=== PATIENT | male | born 1980 | race Caucasian/White ===

== ENCOUNTER 2017-01-15 13:15 | Inpatient (IN) | payer OTHER ==
[~2017-01-15] VITALS: Ht 180.3 cm; Wt 110.0 kg
--- NOTE | 2017-01-15 13:53 | NUR ---
PT IN RM WITH CAREGIVERS
--- NOTE | 2017-01-15 13:54 | NUR ---
DR. DAY AT BEDSIDE FOR MSE.
--- NOTE | 2017-01-15 14:03 | NUR ---
PT BROUGHT TO ED BY CAREGIVERS FROM [facility] C/O POSSIBLE LITHIUM TOXICITY. PER CAREGIVER PT WOKE UP THIS MORNING AT APPROX 0730 WITH INCREASED AGITATION AND CONFUSION, ALSO 3 EPISODES OF LOOSE STOOL. PER CAREGIVER PT WAS STARTED ON LITHIUM 12/18/16 AND DOSE HAS NOT CHANGED SINCE THEN, LEVEL WERE DRAWN 12/28/16 AND WERE NORMAL PER CAREGIVER. CAREGIVER REPORTS PT HAS BEEN AT HOME FOR 4 MONTHS, HX OF MR, NORMAL BASELINE FOR PT HE IS ABLE TO MAKE NEEDS KNOWN AND COOPERATIVE. PT ARRIVED TO ED CONFUSED, NOT FOLLOWING COMMANDS, COMBATIVE, RESTLESS, EPISODES OF AGITATION AND COMBATIVE TOWARDS STAFF PER CAREGIVER, RESPS EVEN AND UNLABORED, SKIN INACT, WARM/DRY TO TOUCH, ABDOMEN ROUND/SOFT. PT GOWNED, PLACED ON SWING TENDER.
--- NOTE | 2017-01-15 14:15 | NUR ---
PT PLACED IN 4PT RESTRAINTS FOR PT SAFETY D/T ATTEMPTING TO AMBULATE WITH UNSTEADY GAIT AND COMBATIVENESS, REMOVING ALL MONITORS. RESTRAINT FORMS SIGNED AND PLACED IN PT CHART. CAREGIVERS AT BEDSIDE.
--- NOTE | 2017-01-15 15:28 | NUR ---
PER CAREGIVER PT PUNCHED 2 CAREGIVERS FROM [facility] WHILE WAITING IN LOBBY.
[2017-01-15 15:33] LABS: BASOPHIL % 0.4 % (0-2); PLATELET COUNT 291 x10^3mcL (130-400); RED CELL DISTRIBUTION WIDTH 13.4 % (11.5-14.5)
--- NOTE | 2017-01-15 15:34 | NUR ---
DR. DAY AT BEDSIDE DISCUSSING PLAN OF CARE WITH CAREGIVERS.
[2017-01-15 15:45] LABS: CALCIUM 9.1 mg/dL (8.5-10.1); CARBON DIOXIDE 29.8 mmol/L (21-32); CHLORIDE SERUM 104 mmol/L (98-107); CREATININE SERUM 1.3 mg/dL (0.7-1.3); GFR1 > 60 mL/min; GLUCOSE SERUM 123 mg/dL (74-106); POTASSIUM SERUM 4.2 mmol/L (3.5-5.1); SODIUM SERUM 142 mmol/L (136-145)
[2017-01-15 15:50] LABS: ALBUMIN 4.4 g/dL (3.4-5.0); ALKALINE PHOSPHATASE 83 U/L (46-116); ALT/SGPT 28 U/L (16-63); AST/SGOT 16 U/L (15-37); BILIRUBIN TOTAL 0.32 mg/dL (0.20-1.00); MAGNESIUM 2.3 mg/dL (1.8-2.4); TOTAL PROTEIN, SERUM 7.8 g/dL (6.4-8.2)
[2017-01-15] MEDS ORDERED: FLUOXETINE HYDR10 M1 PO (16:10)
[2017-01-15] MEDS ORDERED: ABILIFY20 M1 PO (16:10)
[2017-01-15] MEDS ORDERED: HALOPERIDOL5 MG PO ×2 (16:11→16:12)
[2017-01-15] MEDS ORDERED: LITHIUM CARBON300 M1 PO (16:12)
[2017-01-15] MEDS ORDERED: SEROQUEL XR200 M1 PO (16:12)
[2017-01-15] MEDS ORDERED: TEMAZEPAM30 MG PO (16:13)
[2017-01-15] MEDS ORDERED: VALPROIC A250 MG/5 M PO (16:13)
[2017-01-15 16:14] LABS: UA SPECIFIC GRAVITY >=1.030 (1.005-1.035); microscopic required? YES; urine erythrocyte TRACE (NEGATIVE)
[2017-01-15] MEDS ORDERED: TRAZODONE150 M1 PO (16:14)
[2017-01-15] MEDS ORDERED: BENZTROPINE MESY1 MG PO (16:14)
[2017-01-15] MEDS ORDERED: ZONEGRAN100 MG PO (16:15)
[2017-01-15] MEDS ORDERED: ZESTRIL5 MG PO (16:23)
[2017-01-15] MEDS ORDERED: LEVETIRACETAM PO (16:23)
[2017-01-15] MEDS ORDERED: DILANTIN100 MG PO (16:23)
[2017-01-15 16:24] LABS: CHOLESTEROL/HDL RATIO 2.9
[2017-01-15] MEDS ORDERED: ZOCOR10 MG PO (16:24)
[2017-01-15] MEDS ORDERED: DORZOLAMIDE HYD10 M3 OP (16:24)
[2017-01-15] MEDS ORDERED: SEROQUEL200 MG PO (16:24)
[2017-01-15 16:28] LABS: AMPHETAMINE QUAL UR NONE DETECTED (NEG <=1000)
[2017-01-15 16:31] LABS: FREE T4 0.69 ng/dL (0.76-1.46); FREE THYROXINE INDEX 1.2 ug/dL (1.4-4.5); T4(THYROXINE) 3.8 ug/dL (4.7-13.3)
[2017-01-15 16:32] LABS: T3 TOTAL 0.72 ng/mL
--- NOTE | 2017-01-15 16:41 | NUR ---
PT CONTINUES IN 4 POINT RESTRAINTS FOR SAFETY TO SELF AND AGGRESSIVE BEHAVIOR, HAS EPISODES OF YELLING OUT AND RESTLESSNESS, RESPS EVEN AND UNLABORED, NO DISTRESS NOTED. CAREGIVER AT BEDSIDE.
--- NOTE | 2017-01-15 17:01 | NUR ---
RESIDENT AT BEDSIDE FOR EVAL.
--- NOTE | 2017-01-15 18:05 | NUR ---
PT CONTINUES WITH EPISODES OF AGITATION AND RESTLESSNESS, BECOMES HOT AND DIAPHORETIC FROM MOVEMENT THEN CALMS DOWN, RESPS EVEN AND UNLABORED, CAREGIVER AT BEDSIDE.
--- NOTE | 2017-01-15 18:30 | NUR ---
STACY ORDER UNVERIFIED, RESIDENT PAGED FOR CLARIFICATION ON ORDER.
--- NOTE | 2017-01-15 19:23 | NUR ---
REPORT GIVEN TO BIBIANA HOBBS.
--- NOTE | 2017-01-15 19:46 | NUR ---
SPOKE TO DR. RUSS TO CLARIFY LEVAQUIN ORDER. HE STATES HE WILL CONSULT WITH PREVIOUS RESIDENT AND INFORM ASSOCIATE ENTERTAINMENT EDITOR RN BIBIANA.
--- NOTE | 2017-01-15 20:05 | NUR ---
PT LAYING IN BED, APPEARS AGITATED WHEN APPROACHED BY MYSELF. PT ATTEMPTING TO SPIT AT MYSELF AND CAREGIVER WHICH IS AT BEDSIDE. RESPIRATIONS EVEN AND UNLABORED. BED IN LOW POSITION. IN FULL VIEW OF NURSE'S STATION.
--- NOTE | 2017-01-15 23:57 | NUR ---
SPOKE WITH DR. RUSS AND MADE AWARE OF PT REFUSING PO MEDS.
--- NOTE | 2017-01-16 01:34 | NUR ---
PT AGITATED AND YELLING AT THIS TIME. PT YELLS "I WANT TO GO HOME, LEAVE ME ALONE". REORIENTED PT TO WHY HE IS IN THE HOSPITAL. BED IN LOW POSITION. CALL LIGHT WITHIN REACH. CAREGIVER AT BEDSIDE. IN FULL VIEW OF NURSE'S STATION.
--- NOTE | 2017-01-16 03:20 | NUR ---
PT REFUSED TAKING TYLENOL PO FOR FEVER AT THIS TIME. WILL NOTIFY RESIDENT FOR ORDER.
--- NOTE | 2017-01-16 03:25 | NUR ---
NOTIFIED RESIDENT OF PT FEVER, WILL MEDICATE PER ORDER OF TORADOL 30MG IVP.
--- NOTE | 2017-01-16 04:09 | NUR ---
PT SLEEPING IN BED, IN POSITION OF COMFORT. PT EASILY AROUSABLE TO VERBAL STIMULI. RESPIRATIONS EVEN AND UNLABORED. NO ACUTE DISTRESS NOTED. BED IN LOW POSITION. SITTER AT BEDSIDE. CALL LIGHT WITHIN REACH.
--- NOTE | 2017-01-16 07:00 | NUR ---
PT LAYING IN BED, MOVING AROUND CONSTANTLY. RESPIRATIONS EVEN AND UNLABORED. NO ACUTE DISTRESS NOTED. BED IN LOW POSITION. CALL LIGHT WITHIN REACH.
--- NOTE | 2017-01-16 07:40 | NUR ---
PT STILL TRYING TO GET UP OUT OF BED, FOUR POINT RETRAINTS REMAIN ON THE PT WITH ENOUGH ROOM TO FIT TWO OF MY FINGERS BETWEEN THE SOFT RESTRAINT AND THE PTS SKIN. CIRCULATION WNL. ALL FOUR RESTRAINTS REMOVED ONE AT A TIME TO PROVIDE ROM AND THEN REAPPLIED. PTS CARGIVER REMAINS AT BEDSIDE WITH THE PT.
--- NOTE | 2017-01-16 07:56 | NUR ---
REPORTG CALLED TO FABY PAYNE TO ASSUME CARE FOR THIS PT POST TRANSFER FROM ED TO TELE UNIT
--- NOTE | 2017-01-16 08:20 | NUR ---
PT CLEANED AND NEW LINENS PLACED PRIOR TO PT BEING TRANSPORTED UPSTAIRS.
--- NOTE | 2017-01-16 08:26 | NUR ---
PT LEAVING TO GO UPSTAIRS WITH PRIMARY NURSE SHONA AND EMT ALLEY, VIA REED [id number] UP FOR SAFETY. PT AWAKE LOOKING AROUND.
--- NOTE | 2017-01-16 09:50 | NUR ---
RECEIVED PT FROM ER STAFF. PT TRANSPORTED VIA GURNEY. VS STABLE. UNABLE TO ASSESS ORIENTATION, ADMISSION HISTORY OBTAINED FROM BOARDING CARE STAFF. S1S2 ON AUSCULTATION, TELE 13 SR ON MONITOR. ACTIVE BOWEL SOUNDS. MCGEE CATHETER IN PLACE. IV TO RAC PATENT. BED IN LOWEST POSITION, CALL LIGHT WITHIN REACH. BOARDING CARE STAFF AND SITTER AT BEDSIDE.
--- NOTE | 2017-01-16 11:00 | NUR ---
PT IN BED, ON 2 POINT RESTRAINTS BEING MONITORED [id number], PT APPEARS CALM AT MOMENT. SITTER AT BEDSIDE.
[2017-01-16 14:09] VITALS: BP 135/70
--- NOTE | 2017-01-16 14:10 | NUR ---
PT BECOMING AGGITATED, RESTLESSNESS PRESENT. WILL MEDICATE PER EMAR AND DOCTOR'S ORDER. PT TOLERATED WELL. WILL CONTINUE TO MONITOR.
--- NOTE | 2017-01-16 15:55 | NUR ---
PT STILL RESTLESS, AGRESSION EVIDENT. PT ON 2 POINT RESTRAINTS TO BUE, MEDICATED PER EMAR. WILL CONTINUE TO MONITOR CLOSELY.
[2017-01-16 17:12] LABS: BASOPHIL % 0.1 % (0-2); PLATELET COUNT 263 x10^3mcL (130-400); RED CELL DISTRIBUTION WIDTH 13.6 % (11.5-14.5)
[2017-01-16 17:25] LABS: CALCIUM 8.6 mg/dL (8.5-10.1); CARBON DIOXIDE 25.9 mmol/L (21-32); CREATININE SERUM 1.6 mg/dL (0.7-1.3); POTASSIUM SERUM 3.6 mmol/L (3.5-5.1)
[2017-01-16 17:50] VITALS: BP 134/72
--- NOTE | 2017-01-16 18:10 | NUR ---
PT IN BED SUPINE, CALM AND SLEEPING AT MOMENT. REMAINS ON 2 POINT SOF RESTRAINTS TO BUE, PULSES PRESENT +2 BILATERALLY. WILL CONTINUE TO MONITOR CLOSELY.
[2017-01-16 18:24] VITALS: BP 131/79
[2017-01-16 19:32] LABS: MAGNESIUM 1.9 mg/dL (1.8-2.4); PHOSPHOROUS 3.9 mg/dL (2.5-4.9)
[2017-01-16 19:58] VITALS: BP 133/72
--- NOTE | 2017-01-16 20:00 | NUR ---
sedated. on soft bilateral wrist restraints for pt's safety. pt attempts to pull on iv line and friedman cath. breathing even and unlabored on 2lpm of o2 via nc. on cooling measures. new iv inserted to right hand, 22g, by nurse tiffanyu. iv to right forearm could not be flushed.
--- NOTE | 2017-01-16 20:27 | NUR ---
pt's caregiver don prieto here. aware pt is on soft bilateral wrist restraints for his safety. he stated he will bring pt's radio tomorrow as it helps calm pt down.
[2017-01-16 21:00] VITALS: BP 127/71
--- NOTE | 2017-01-16 21:49 | NUR ---
UNABLE TO ADMINISTER DUE PO MEDICATIONS, PT STILL SEDATED. DR. IVORY INFORMED.
--- NOTE | 2017-01-16 23:41 | NUR ---
PT WOKE UP, BECOMING AGITATED. WAS ABLE TO ADMINISTER PO MEDS NOT ADMINISTERED EARLIER. STILL ON SOFT BILATERAL WRIST RESTRAINTS. ATTEMPTS TO PULL OUT IV AND MCGEE CATH. ATTEMPTS TO GET OUT OF BED WITHOUT CALLING. DANGER TO SELF
--- NOTE | 2017-01-17 00:30 | NUR ---
PT REMOVED STATLOCK MCGEE. PUT IN PLACE NEW STATLOCK MCGEE. TURNED AND REPOSITIONED. HOB KEPT ELEVATED 30 DEG. ON SOFT BILATERAL WRIST RESTRAINTS. DANGER TO SELF. CALL LIGHT WITHIN EASY REACH. SIDE RAILS PADDED. HX OF EPILEPSY.
--- NOTE | 2017-01-17 01:24 | NUR ---
EYES CLOSED, BREATHING EVEN AND UNLABORED ON 2LPM OF O2 VIA NC. HOB KEPT ELEVATED 30 DEG. UPPER SIDE RAILS KEPT RAISED. CALL LIGHT WITHIN EASY REACH. SITTER IN ROOM. STILL ON SOFT BILATERAL WRIST RESTRAINTS. ATTEMPTS TO PULL ON IV LINE AND MCGEE CATH. IVF OF NS AT 50ML/HR. SINUS RHYTHM ON TELE, HR 100/MIN.
--- NOTE | 2017-01-17 06:26 | NUR ---
BED BATH ADMINISTERED. ORAL CARE DONE. MCGEE CATH CLEANED PER PROTOCOL. NOTED BLANCHABLE REDNESS TO BUTTOCKS. Z GUARD APPLIED. BREATHING EVEN AND UNLABORED ON 2LPM OF O2 VIA NC. HOB KEPT ELEVATED 30 DEG. FEET OFFLOADED FROM BED WITH PILLOWS. STILL DANGER TO SELF. ATTEMPTS TO PULL ON IV LINE AND MCGEE CATH. OPENS EYES SPONTANEOUSLY. AT TIMES, AGITATED. SITTER IN ROOM
[2017-01-17 06:36] VITALS: BP 140/72
[2017-01-17 06:55] LABS: BASOPHIL % 0.1 % (0-2); PLATELET COUNT 257 x10^3mcL (130-400); RED CELL DISTRIBUTION WIDTH 13.6 % (11.5-14.5)
--- NOTE | 2017-01-17 06:57 | NUR ---
EYES CLOSED, BREATHING EVEN AND UNLABORED. HOB KEPT ELEVATED 30 DEG.
[2017-01-17 07:04] LABS: CALCIUM 8.6 mg/dL (8.5-10.1); CARBON DIOXIDE 27.4 mmol/L (21-32); CHLORIDE SERUM 103 mmol/L (98-107); CREATININE SERUM 1.2 mg/dL (0.7-1.3); GFR1 > 60 mL/min; GLUCOSE SERUM 116 mg/dL (74-106); POTASSIUM SERUM 3.6 mmol/L (3.5-5.1); SODIUM SERUM 140 mmol/L (136-145)
--- NOTE | 2017-01-17 07:40 | NUR ---
REASSESSMENT DONE. PT SLEEPING DURING ASSESSMENT. NO DISTRESS NOTED ON TELE 13 WITH SR ON MONITOR. PT ON 2 POINT SOFT RESTRAINTS AT MOMENT. PALPABLE PULSES TO BUE +2. SKIN WARM AND DRY TO BUE. PT HAS MCGEE CATHETER IN PLACE WITH DARK RENITA URINE IN COLLECTING BAG. IV INFUSING WELL TO RIGHT HAND NS 50ML/HR. BED IN LOWEST POSITION, CALL LIGHT WITHIN REACH.
[2017-01-17 10:10] VITALS: BP 131/80
--- NOTE | 2017-01-17 11:25 | NUR ---
PT BECOMING AGITATED, PULLING AND KICKING. RESTLESS. MEDICATED PER EMAR. SITTER AT BEDSIDE. WILL CONTINUE TO MONITOR CLOSELY.
--- NOTE | 2017-01-17 13:25 | NUR ---
PERFORMED MCGEE CATHETER CARE. PULSES +2 TO BILATERAL UPPER EXTREMITIES. SKIN WARM, AND DRY. SITTER AT BEDSIDE.
--- NOTE | 2017-01-17 17:00 | NUR ---
IV RESTARTED TO LFA 22 GAUGE BY SABRINA HARPER. PT AGITATED AT TIME OF INSERTION.
--- NOTE | 2017-01-17 17:22 | NUR ---
PT BECOMING MORE AGITATED, AND COMBATIVE. RESTLESS. MEDICATED PER EMAR. PT TOLERATED WELL. SITTER AT BEDSIDE. WILL CONTINUE TO MONITOR CLOSELY.
--- NOTE | 2017-01-17 19:52 | NUR ---
PT AWAKE, YELLING, AND TRYING TO PULL LINES. GAVE PT ATIVAN IVP. PT TOLERATED IT WELL. NO C/O PAIN THUS FAR. RESPONDS WITH VERBAL STIMULI. BREATH SOUNDS CLEAR. BREATHING EVEN AND UNLABORED ON 2L NC, SPO2 97%. BUSTER SOFT WRIST RESTRAINS NOTED. PT TOLERATING IT WELL. BOWEL SOUNDS ACTIVE. NO C/O N/V AND ABD PAIN. IV INTACT ON THE RIGHT HAND INFUSING WITH NS AT 50 ML/HR. MCGEE CATH IN PLACE DRAINING TO GRAVITY WITH DARK RENITA URINE. REDNESS NOTED ON BUE AND SCRATCHES BUTTOCKS RENAY. MADE PT COMFORTABLE. PLACED CALL LIGHT WITH IN REACH. WILL CONTINUE TO MONITOR.
[2017-01-17 21:25] VITALS: BP 120/70
--- NOTE | 2017-01-18 00:32 | NUR ---
PT RESTING WITH EYES CLOSED. NO DISTRESS AND DISCOMFORT NOTED. MADE PT COMFORTABLE. WILL CONTINUE TO MONITOR.
--- NOTE | 2017-01-18 05:39 | NUR ---
PT RESTING WITH EYES CLOSED. AROUSABLE WITH VERBAL STIMULI. IV INTACT AND INFUSING ORDERED. MCGEE CATH IN PLACE. MADE PT COMFORTABLE. WILL ENDORSE TO THE AM NURSE ACCORDINGLY.
[2017-01-18 06:06] LABS: CALCIUM 8.5 mg/dL (8.5-10.1); CARBON DIOXIDE 28.7 mmol/L (21-32); CHLORIDE SERUM 102 mmol/L (98-107); GFR1 > 60 mL/min; GLUCOSE SERUM 108 mg/dL (74-106); POTASSIUM SERUM 3.9 mmol/L (3.5-5.1); SODIUM SERUM 139 mmol/L (136-145)
[2017-01-18 06:16] LABS: BASOPHIL % 0.2 % (0-2); PLATELET COUNT 256 x10^3mcL (130-400); RED CELL DISTRIBUTION WIDTH 13.4 % (11.5-14.5)
[2017-01-18 06:43] VITALS: BP 121/74
--- NOTE | 2017-01-18 07:30 | NUR ---
PATIENT IS IN BED WITH BILAT SOFT WRIST RESTRAINTS IN PLACE. PATIENT VERY AGITATED YELLING AND CURSING OFF AND ON. CLIMBING OUT OF BED OVER SIDERAILS. ALERT AND ORIENTED X 1. IVF INFUSING WELL, SITE PATENT. TELE 13 NSR. LUNGS CLEAR ON O2 AT 2L VIA N/C. PT IS OBESE, BOWEL SOUNDS ACTIVE. MCGEE CATH DRAINING VERY DARK RENITA URINE. NO EDEMA NOTED. SCATTERED BRUISING AND REDNESS NOTED ON EXTREMITES AND BILAT BUTTOCKS . SKIN INTACT. WILL CONTINUE TO MONITOR.
--- NOTE | 2017-01-18 08:20 | NUR ---
DR DEL RIO AND MEDICAL TEAM INTO SEE PATIENT AND DISCUSS PLAN OF CARE.
[2017-01-18 08:31] VITALS: BP 137/78
[2017-01-18 09:21] VITALS: BP 172/119
--- NOTE | 2017-01-18 09:26 | NUR ---
PT IS AGITATED AND IS PUSHING STAFF WHILE SCREAMING. PT IS A HARM TO STAFF. WILL MEDICATE PER EMAR. WILL CONTIN TO MONITOR.
--- NOTE | 2017-01-18 09:30 | NUR ---
PT IS AGITATED AND IS SCREAMING AND YELLING. PT IS TRYING TO BITE AND KICK STAFF. STAFF TRY TO CALM PT DOWN BUT PT IS NONCOMPLICANCE. WILL MEDICATE PER EMAR. WILL CONTINUE TO MONITOR.
--- NOTE | 2017-01-18 10:47 | NUR ---
PATIENT CURSING YELLING VERY AGITATED. MEDICATED WITH HALDOL IV BY MIN RN WITH GOOD EFFECT. PATIENT APPEARS TO BE CALM AND RESTING. WILL CONTINUE TO MONITOR.
[2017-01-18 13:48] VITALS: BP 133/70
--- NOTE | 2017-01-18 15:57 | NUR ---
PATIENT REMAINS IN BED WITH BILAT SOFT WRIST RESTRAINTS IN PLACE. BECOMES AGITATED AT TIMES. VISITOR AT BEDSIDE AT THIS TIME. IVF INFUSING WELL. NO ACUTE DISTRESS NOTED. WILL CONTINUE TO MONITOR.
--- NOTE | 2017-01-18 16:06 | NUR ---
MCGEE CATH CARE PROVIDED.
[2017-01-18 17:26] VITALS: BP 125/71
--- NOTE | 2017-01-18 18:20 | NUR ---
PATIENT REMAINS IN BED WITH BILAT SOFT WRIST RESTRAINTS IN PLACE. IVF INFUSING WELL. PATIENT CONTINUES TO HAVE OUTBURSTS OF AGITATION AND CURSING. ATTEMPTS TO GET OOB. MCGEE CATH DRAINING DARK RENITA URINE. WILL CONTINUE TO MONITOR.
--- NOTE | 2017-01-18 19:05 | NUR ---
I HAVE REVIEWED THE DATA COLLECTION BY LUCIO (NAME): ZULMA SHANNON ENTERED ON (DATE/TIME): 01/18/17 0930,0820, 1047, 1557, 1606 I CONCUR WITH THE DATA AND ANY EXCEPTIONS OR COMMENTS ARE LISTED BELOW:
--- NOTE | 2017-01-18 21:01 | NUR ---
PT CURRENTLY RESTING IN BED, NO ACUTE DISTRESS. A/O X1, DEVELOPMENTALLY DELAYED. PT YELLING AND AGITATED. TELE #13 SHOWING SINUS RHYTHM. PULSES PALPABLE IN ALL EXTREMITIES, NO EDEMA NOTED. LUNG SOUNDS CTA BILATERALLY. BOWEL SOUNDS ACTIVE, LAST BM 01/18/17, WATERY STOOLS. MCGEE CATHETER IN PLACE, DARK RENITA URINE NOTED. BILATERAL SOFT WRIST RESTRAINTS IN PLACE DUE TO PT AGRESSION. SKIN AROUND RESTRAINTS WNL. REDNESS TO BUE AND BUTTOCKS NOTED. IV PATENT AND INTACT. BED IN LOWEST POSITION, SIDE RAILS UP X4, SCDS IN PLACE, CALL LIGHT WITHIN REACH. WILL CONTINUE TO MONITOR.
[2017-01-18 22:08] VITALS: BP 132/69
--- NOTE | 2017-01-19 02:00 | NUR ---
PT CURRENTLY RESTING IN BED, NO ACUTE DISTRESS. WILL CONTINUE TO MONITOR.
--- NOTE | 2017-01-19 06:00 | NUR ---
PT SLEPT PERIODICALLY THROUGHOUT NIGHT, NO ACUTE DISTRESS. ALL NEEDS MET AND ATTENDED TO. NO SIGNIFICANT CHANGES. IV PATENT AND INTACT. BED IN LOWEST POSITION, SIDE RAILS UP X4, SCDS IN PLACE, CALL LIGHT WITHIN REACH. WILL ENDORSE CARE TO ONCOMING NURSE.
[2017-01-19 06:13] LABS: BASOPHIL % 0.5 % (0-2); PLATELET COUNT 279 x10^3mcL (130-400); RED CELL DISTRIBUTION WIDTH 13.6 % (11.5-14.5)
[2017-01-19 06:16] LABS: CALCIUM 8.8 mg/dL (8.5-10.1); CHLORIDE SERUM 107 mmol/L (98-107); CREATININE SERUM 0.9 mg/dL (0.7-1.3); GFR1 > 60 mL/min; GLUCOSE SERUM 103 mg/dL (74-106); POTASSIUM SERUM 4.6 mmol/L (3.5-5.1); SODIUM SERUM 143 mmol/L (136-145)
--- NOTE | 2017-01-19 07:30 | NUR ---
RECEIVED PT RESTING IN BED. AGITATED AND YELLING AT STAFF ON AND OFF. RESP EVEN AND UNLABORED ON 3L NC. NO SOB NOTED. WITH BILAT SOFT WRIST RESTRAINTS. WITH SKIN TEAR R WRIST, DRESSING APPLIED. SEIZURE PRECAUTIONS IN PLACE. IVF INFUSING. MCGEE CATH DRAINING TO GRAVITY. BED IN LOWEST POSITION, CALL LIGHT WITHIN REACH. ROOM NEAR NURSES STATION. WILL CONTINUE TO MONITOR.
[2017-01-19 09:12] VITALS: BP 126/84
[2017-01-19 13:30] VITALS: BP 118/75
--- NOTE | 2017-01-19 14:52 | NUR ---
PT VERY AGITATED, YELLING AND ATTEMPTING TO KICK STAFF. GIVEN HALDOL ORDERED. BILAT SOFT WRIST RESTRAINTS IN PLACE. SEIZURE PADS IN PLACE. WILL CONTINUE TO MONITOR.
[2017-01-19 17:31] VITALS: BP 114/69
--- NOTE | 2017-01-19 19:02 | NUR ---
PT RESTING COMFORTABLY IN BED. NO ACUTE DISTRESS AT THIS TIME. YELLING AT TIMES. SEIZURE PRECAUTIONS IN PLACE. BILAT SOFT WRIST RESTRAINTS. IVF INFUSING. BED IN LOWEST POSITION, CALL LIGHT WITHIN REACH. WILL ENDORSE TO INCOMING SHIFT.
--- NOTE | 2017-01-19 20:36 | NUR ---
PT CURRENTLY IN BED, AGITATED AND AGGRESSIVE. NO ACUTE DISTRESS. A/O X1, DEVELOPMENTALLY DELAYED. TELE #13 SHOWING SINUS RHYTHM. PULSES PALPABLE IN ALL EXTREMITIES, NO EDEMA NOTED. LUNG SOUNDS CTA BILATERALLY. BOWEL SOUNDS ACTIVE, LAST BM 01/19/17. MCGEE CATHETER IN PLACE, RENITA URINE NOTED. BILATERAL SOFT WRIST RESTRAINTS IN PLACE. BLANCHABLE REDNESS TO BUE AND BUTTOCKS NOTED. RIGHT WRIST SKIN TEAR NOTED, DRESSING CDI. IV PATENT AND INTACT. BED IN LOWEST POSITION, SIDE RAILS UP X4, SCDS IN PLACE, CALL LIGHT WITHIN REACH. WILL CONTIUE TO MONITOR.
--- NOTE | 2017-01-19 23:03 | NUR ---
MCGEE CATHETER REMOVED, NO ACUTE DISTRESS. WILL CONTINUE TO MONITOR.
--- NOTE | 2017-01-20 01:15 | NUR ---
NEW IV STARTED IN RIGHT WRIST. IV FLUSHING WELL. WILL CONTINUE TO MONITOR.
--- NOTE | 2017-01-20 01:30 | NUR ---
PT CURRENTLY LYING IN BED, FREQUENT EPISODES OF AGITATION AND AGGRESSION STILL APPARENT. WILL CONTINUE TO MONITOR.
--- NOTE | 2017-01-20 06:08 | NUR ---
PT AGGRESSIVE AND AGITATED PERIODICALLY THROUGHOUT NIGHT. NO ACUTE DISTRESS. ALL NEEDS MET AND ATTENDED TO. NO SIGNIFICANT CHANGES. IV PATENT AND INTACT. BED IN LOWEST POSITION, SIDE RAILS UP X4, SCDS IN PLACE, CALL LIGHT WITHIN REACH. WILL ENDORSE CARE TO ONCOMING NURSE.
[2017-01-20 06:15] LABS: BASOPHIL % 0.4 % (0-2); PLATELET COUNT 334 x10^3mcL (130-400); RED CELL DISTRIBUTION WIDTH 13.4 % (11.5-14.5)
[2017-01-20 06:41] LABS: CALCIUM 9.1 mg/dL (8.5-10.1); CARBON DIOXIDE 26.4 mmol/L (21-32); CHLORIDE SERUM 103 mmol/L (98-107); CREATININE SERUM 0.9 mg/dL (0.7-1.3); GFR1 > 60 mL/min; GLUCOSE SERUM 119 mg/dL (74-106); POTASSIUM SERUM 3.8 mmol/L (3.5-5.1); SODIUM SERUM 142 mmol/L (136-145)
[2017-01-20 07:30] VITALS: BP 153/93
--- NOTE | 2017-01-20 08:00 | NUR ---
PT'S DROWSY BUT ON STATE OF FIGHTING HIS DROWSINESS AT THIS TIME,UP AND DOWN ON HIS BED,ON BUSTER.SOFT RESTRAINT,NOTED SWELLING AND REDNESS TO BOTH HANDS,SKIN TEAR NOTED ON RIGHT WRIST NOC NURSE AWARE AND REPORTED IT ON ENDORSEMENT. IV HEPLOCK PATENT AND REINFORCED,SITTER AT BEDSIDE.
--- NOTE | 2017-01-20 08:45 | NUR ---
PT'S AGITATED AND AGRESSIVE AT THIS TIME,TRYING TO GET OUT OF BED,HITTING NURSE AT BEDSIDE WHEN TRYING TO CALM HIM DOWN ON HIS BED.BILAT. SOFT REST. ON. TO GIVE PRN MED.
--- NOTE | 2017-01-20 09:00 | NUR ---
PT STILL AGITATED AND AGRESSIVE AND SPITTED OUT ALL HIS CRUSHED MIX W/ APPLE SAUCE MEDICINE,VERY UNCOOPERATIVE. TO INFORM
--- NOTE | 2017-01-20 09:20 | NUR ---
DR FLORES AT STATION MADE AWARE OF PT'S BEHAVIOUR AT THIS TIME,SABRINA BRAGG ALSO AWARE,DR FLORES WRITING ADDITIONAL ORDERS AT THIS TIME,TO FOLLOW UP.
--- NOTE | 2017-01-20 09:30 | NUR ---
ADDITIONAL IVP MEDS GIVEN ORDERED,DOC.ON EMAR,VITAL'S NOTED.
--- NOTE | 2017-01-20 10:45 | NUR ---
PT OUT SLEEPING AT THIS TIME,RESTRAINT OFF AT THIS TIME,SITTER AT BEDSIDE,TELE MONITOR SHOWS SR AT 90'S. TO REASSES.
[2017-01-20 12:49] VITALS: BP 166/93
--- NOTE | 2017-01-20 13:57 | NUR ---
Patient spited out the meds/water from his mouth to nurse's face, still yelling and kicking at times. Dr. Munson made aware of patient's situation.
--- NOTE | 2017-01-20 14:11 | NUR ---
PT ASLEEP AT THIS TIME IN NO ACUTE DISTRESS. BED AT LOWEST POSITION WITH SEIZURE PADS IN PLACE. WILL CONTINUE TO MONITOR.
[2017-01-20 14:42] VITALS: BP 128/72
--- NOTE | 2017-01-20 16:55 | NUR ---
PT AWAKE,STILL DROWSY,TRIED TO GIVE HIS ORAL MED HALDOL AND SEROQUEL AND ABLE TO TAKE IT WITH DR BUTLER AT BEDSIDE REINFORCING TO TAKE HIS ORAL MEDS. TRIED TO GIVE THE REST OF HIS ORAL MEDS FOR THE DAY BUT REFUSING ALREADY TO OPEN HIS MOUTH AND UNCOOPERATIVE AT THIS MOMENT.
[2017-01-20 18:05] VITALS: BP 133/78
--- NOTE | 2017-01-20 19:17 | NUR ---
PT SLEEPING COMFORTABLY AT THIS TIME,IN NO DISTRESS,VITALS' NORMAL,BEDSIDE ENDORSEMENT DONE WITH NOC NURSE MABLE AND ORIENTEE.HEPLOCK INTACT AND PATENT, CIRCULATION CHECKED DONE AND WNL NOTED. BUSTER SOFT RESTRAINT ALSO ENDORSED W/ FLOW SHEET AND MD ORDER.
--- NOTE | 2017-01-20 21:22 | NUR ---
ORIENTED TO NAME ONLY. LUNG SOUNDS CLEAR AND UNLABORED ON ROOM AIR. NO ACUTE DISTRESS NOTED. ON TELE #13, NSR. RADIAL AND PEDAL PULSES PALPABLE. BOWEL SOUNDS ACTIVE X 4 QUADRANTS. DROWSY BUT EASILY AWAKENS TO VERBAL STIMULI. BILAT SOFT WRIST RESTRAINTS FOR SAFETY, SEE FLOWSHEET. DRESSING ON RIGHT WRIST FOR SKIN TEAR CDI. SLIGHT REDNESS TO LEFT WRIST AND BILATERAL ANKLES. BLANCHABLE REDNESS TO SACRUM, APPLIED Z GUARD. NS INFUSING AT 50 ML/HR TO LEFT WRIST, NO REDNESS OR SWELLING. BED IN LOW POSITION, CALL LIGHT WITHIN REACH. SITTER AT BEDSIDE. WILL CONTINUE TO MONITOR.
[2017-01-20 21:55] VITALS: BP 146/89
--- NOTE | 2017-01-20 22:29 | NUR ---
AGITATED, ATIVAN 2MG ADMINISTERED SLOW IVP. HOB KEPT ELEVATED 30 DEG. BREATHING EVEN AND UNLABORED ON ROOM AIR.
--- NOTE | 2017-01-20 22:40 | NUR ---
STILL AGITATED. PAGED DR. ATKINS
--- NOTE | 2017-01-20 23:08 | NUR ---
NEW ORDER WAS RECEIVED, BENADRYL 50MG ADMINISTERED SLOW IVP. HOB KEPT ELEVATED 30 DEG. SITTER IN ROOM.
[2017-01-20 23:48] VITALS: BP 130/87
--- NOTE | 2017-01-20 23:51 | NUR ---
NURSING CO-SIGN THE DOCUMENTATION ENTERED BY THE ORIENTEE HAS BEEN REVIEWED. REVIEWED/CO-SIGNED BY: Cj Man DOCUMENTATION DONE BY: JAIDEN BRAN
--- NOTE | 2017-01-21 00:28 | NUR ---
eyes closed, hob kept elevated 30 deg. on seizure precautions, side rails padded. breathing even and unlabored. rr 18/min. sitter in room.
[2017-01-21 04:53] VITALS: BP 143/88
--- NOTE | 2017-01-21 06:09 | NUR ---
BED BATH ADMINISTERED. PT REFUSED TO WEAR GOWN ALL NIGHT. BREATHING REMAINED EVEN AND UNLABORED ON ROOM AIR. KEPT ON SEIZURE PRECAUTIONS. STILL AGITATED. ON SOFT BILATERAL WRIST RESTRAINTS. ATTEMPTS TO PULL ON IV LINE AND REMOVE TELEBOX. DANGER TO SELF. SITTER IN ROOM.
--- NOTE | 2017-01-21 07:15 | NUR ---
PT DROWSY.SCREAMS AT TIMES.NO SIGNS OF PAIN.LUNGS CLEAR.ON SR ON THE MONITOR.IVF NS GOING AT 50 ML/HR INFUSING WELL.BILAT SOFT WRIST RESTRAINTS FOR PULLING LINES,COMBATIVE AND KICKING,SPITTING AND SCREAMING.SITTER AT BEDSIDE FOR SAFETY.WILL CONTINUE TO MONITOR.
[2017-01-21 07:37] LABS: BASOPHIL % 0.5 % (0-2); PLATELET COUNT 336 x10^3mcL (130-400); RED CELL DISTRIBUTION WIDTH 13.8 % (11.5-14.5)
[2017-01-21 07:44] LABS: CALCIUM 8.7 mg/dL (8.5-10.1); CARBON DIOXIDE 29.6 mmol/L (21-32); CHLORIDE SERUM 104 mmol/L (98-107); CREATININE SERUM 0.9 mg/dL (0.7-1.3); GFR1 > 60 mL/min; GLUCOSE SERUM 114 mg/dL (74-106); MAGNESIUM 1.9 mg/dL (1.8-2.4); PHOSPHOROUS 3.5 mg/dL (2.5-4.9); POTASSIUM SERUM 3.6 mmol/L (3.5-5.1); SODIUM SERUM 142 mmol/L (136-145)
--- NOTE | 2017-01-21 08:10 | NUR ---
AND MEDICINE TEAM AT BEDSIDE.DISCUSS WITH THE MEDICINE TEAM ABOUT THE PLAN OF CARE TO D/C PT TODAY.
[2017-01-21 09:00] VITALS: BP 124/69
--- NOTE | 2017-01-21 09:30 | NUR ---
PT REFUSED HIS MEDS WON'T OPEN HIS MOUTH.TRIED TO TALK TO HIM BUT SPITS ON THE PILL.WILL TRY AGAIN LATER.
--- NOTE | 2017-01-21 12:35 | NUR ---
CAREGIVER AT BEDSIDE. SPOKE TO SHARONA.ALSO SPOKE WITH THE RN.
[2017-01-21 14:50] VITALS: BP 146/91
--- NOTE | 2017-01-21 15:10 | NUR ---
TALKED TO LEV ONE OF THE CAREGIVER.ASKED HOW THE PT WAS IN THE BOARDING CARE.CLAIMS PT WAS MORE COOPERATIVE BEFORE ADMISSION WAS ABLE TO SING AND DANCE UNTIL HE WAS ACTING DIFFERENT AND ALSO SPITTING HIS PILL AT HOME THAT'S WHY THEY HAVE TO TAKE HIM TO THE HOSPITAL.
--- NOTE | 2017-01-21 16:00 | NUR ---
TOOK OFF L RESTRAINTS WITH THE PERMISSION OF TO CHECK IF PT WILL TRY TO CALM DOWN .SITTER AT BEDSIDE FOR SAFETY.PT SLEEPING AT HE MOMENT.
--- NOTE | 2017-01-21 18:30 | NUR ---
PT TRING TO GET OUT OF BED.PUT HIM BACK TO BED AND PUT L WRIST RESTRAINT ON.NO SIGNIFICANT CHANGE NOTED.WILL ENDORSE TO NEXT SHIFT.
--- NOTE | 2017-01-21 19:12 | NUR ---
PT AGITATED TRYING TO GET OUT OF BED.AGITATED.KICKING.HALDOL GIVEN ORDERED BY RESOURCE NURSE AGATHA.
[2017-01-21 19:16] VITALS: BP 155/104
--- NOTE | 2017-01-21 19:43 | NUR ---
PT. NOT FOLLOWING COMMANDS AT THIS TIME. BEHAVIOR AGGRESSIVE. BUE RESTRAINTS ALREADY BURSTED 2 SETS SINCE START OF SHIFT. PT. ALSO STANDING UP IN BED AND STRIKING AT STAFF. ATTEMPTS TO GIVE PRN ATIVAN, BUT IV CATH CAME OUT. 3-4 NURSES ARE OCCUPIED TO RESTRAINT PATIENT AND GET HIM TO SIT BACK DOWN IN BED. BUE RED AND SKIN TEAR NOTED. ABD. SOFT AND ROUND. UNABLE TO ASSESS BREATH SOUNDS AT THIS TIME. PT. NOT STAYING STILL. DR. IVORY PAGED AT THIS TIME.
--- NOTE | 2017-01-21 20:10 | NUR ---
2MG ATIVAN GIVEN IM RT. DELTOID. WILL MONITOR PT.
--- NOTE | 2017-01-21 20:45 | NUR ---
ATIVAN IM INEFFECTIVE. PT. STILL RESTLESS AND REMOVING CLOTHES. TRYING TO STRIKE HIS HANDS AT STAFF AT TIMES. PT. ABLE TO BURST 3RD SET OF SOFT WRIST RESTRAINTS. REQUIRES 2-3 STAFF MEMBERS AT TIMES TO KEEP HIM IN BED. PT. STILL ABLE TO STAND HIMSELF UP IN BED AT TIMES, EXTREMELY STRONG.
--- NOTE | 2017-01-22 00:27 | NUR ---
PT. MORER CALM AT THIS TIME. STARTING TO DOZE OFF TO SLEEP. ABLE TO PLACE PT. BACK ON HEART MONITOR, SR. BED REMAINS LOW LAYING W/ ALARM ON. FREQUENT ROUNDS MADE.
--- NOTE | 2017-01-22 04:48 | NUR ---
PT. BEWTEEN SLEEP AND WAKE. RESTLESS AT TIMES, BUT THEN DOZES BACK OFF TO SLEEP. SITTER REMAINS AT BEDSIDE. NO IV ACCESS AVAILABLE. PT. SR ON MONITOR. WILL CONTINUE TO MONITOR.
[2017-01-22 06:25] LABS: BASOPHIL % 0.5 % (0-2); PLATELET COUNT 329 x10^3mcL (130-400); RED CELL DISTRIBUTION WIDTH 13.4 % (11.5-14.5)
[2017-01-22 06:43] LABS: CALCIUM 8.3 mg/dL (8.5-10.1); CARBON DIOXIDE 22.6 mmol/L (21-32); CHLORIDE SERUM 105 mmol/L (98-107); CREATININE SERUM 0.9 mg/dL (0.7-1.3); GFR1 > 60 mL/min; GLUCOSE SERUM 109 mg/dL (74-106); POTASSIUM SERUM 3.4 mmol/L (3.5-5.1); SODIUM SERUM 141 mmol/L (136-145)
--- NOTE | 2017-01-22 07:00 | NUR ---
BEDSIDE REPORT RCD FROM FABY MATA. PATIENT IS ASLEEP, BUT WAKES EASILY. PATIENT HAS 1:1 SITTER DUE TO AGITATION. BILATERAL SOFT WRIST RESTRAINTS IN PLACE. PER REPORT PATIENT HAS BROKEN OUT OF RESTRAINTS SEVERAL TIMES AND BECOMES VERY AGITATED AT TIMES, IS VERY STRONG AND IS PHYSICALLY AGRESSIVE. ALSO DEVELOPMENTALLY DELAYED. NO IV ACCESS, DOCTORS AWARE PER ADOLFO. TELE NOT ON PROPERLY DUE TO PATIENT AGITATION PER ADOLFO. BED LOW. WILL MONITOR.
--- NOTE | 2017-01-22 08:30 | NUR ---
PATIENT IS GROGGY BUT AROUSABLE TO VERBAL AND PHYSICAL STIMULUS. PATIENT TOOK ALL MEDICATIONS OVER THE COURSE OF ABOUT 15 MINUTES, SOME WITH FOOD, SOME WITHOUT. PATIENT'S SPEECH IS A LITTLE GARBLED BUT SAYS A FEW WORDS AT TIMES. IS RESTLESS AND TRIES TO GET OUT OF BED A FEW TIMES, REDIRECTED AND DISTRACTED BY NURSE AND TRIAL JUDGE, ASHLY. BILATERAL SOFT WRIST RESTRAINTS, RELEASED, ROM, CMS INTACT TO FINGERS, REATTACHED. DRY ABRASIONS NOTED TO BILATERAL WRISTS, PICTURES IN CHART, FROM PREVIOUS PULLING ON RESTRAINTS, MATCH UP WORKER, HEALING. TELE IS ON AND OFF, TELE 13, SR IN 80s, NO APPARENT CHEST PAIN. PATIENT IS DEVELOPMENTALLY DELAYED AND HAS PSYCH HISTORY. HISTORY OF SEIZURES, PRECAUTIONS IN PLACE. HISTORY OF VIOLENT OUTBURSTS PER FABY MATA. NOC NURSE. PALPABLE PERIPHERAL PULSES, NO EDEMA. BECOMES RESTLESS AND KICKS WITH SCDs AND WITH TELE MONITORING. LUNGS CTA BUSTER, REG RESPS, 97% ON ROOM AIR, NO APPARENT SHORTNESS OF BREATH. ABD OBESE, SOFT, NONTENDER, BOWEL SOUNDS ACTIVE. LAST BM YESTERDAY, NO APPARENT DEQUAN/VTG/ALEK. PATIENT ASKED TO GO TO BATHROOM, URINAL PROVIDED AND TRIAL JUDGEJOLLY, ASSISTED WITH USE. DENIES NEED FOR BM AT THIS TIME. NO IV ACCESS, DR. WAY AWARE. WILL MONITOR BEHAVIOR.
[2017-01-22 09:12] VITALS: BP 147/89
--- NOTE | 2017-01-22 10:30 | NUR ---
PATIENT IS ASLEEP, REGULAR RESPS, CALM AT THIS TIME. ALEXA AZEVEDO, AT BEDSIDE. REMOVED LEFT RESTRAINT, WILL MONITOR FOR PATIENT BEHAVIOR. JOLLY TO CALL IF PATIENT BECOMES AGITATED.
--- NOTE | 2017-01-22 11:40 | NUR ---
DR. WAY IN ROOM TO CHECK ON PATIENT. PATIENT ASLEEP, REGULAR RESPS. POSITIONED ON RIGHT SIDE. LEFT WRIST RESTRAINT STILL OFF, HOWEVER, PATIENT DID GET UP ON KNEES A FEW MINUTES PRIOR PER VISITOR IN ROOM, BUT THEN LAID BACK DOWN. PER DR. WAY CONTINUE RESTRAINTS FOR PATIENT AND STAFF SAFETY. WILL MONITOR.
[2017-01-22 14:00] VITALS: BP 136/89
--- NOTE | 2017-01-22 14:14 | NUR ---
MEDICATIONS GIVEN PER MAR. HOWEVER, PATIENT SPIT OUT SEVERAL TIMES. SOME OF THE MEDICATION WAS SWALLOWED, BUT SOME WAS SPIT OUT PARTIALLY DISSOLVED. UNSURE HOW MUCH MEDICATION ACTUALLY RECEIVED BY PATIENT. PATIENT IS RESTLESS AND UNCOOPERATIVE AT THIS TIME. RESTRAINT TO LEFT WRIST REPLACED AT THIS TIME DUE TO PATIENT TRYING TO GET OUT OF BED, UNCOOPERATIVE, YELLING AT STAFF AND NOT FOLLOWING DIRECTIONS. RESTRAINTS FOR CONCERN FOR PATIENT AND STAFF SAFETY. LOAN UNDERWRITER, TESSA, ATTEMPTING TO ASSIST PATIENT WITH LUNCH.
--- NOTE | 2017-01-22 16:32 | NUR ---
STAFF MEMBER FROM [facility] HERE FOR UPDATE. UPDATED ON PATIENT'S MEDICATIONS TODAY AND HIS BEHAVIOR.
--- NOTE | 2017-01-22 17:42 | NUR ---
PATIENT COAXED INTO TAKING MEDICATIONS WITH PUGABEING. IS COOPERATING AT THIS TIME. BILATERAL SOFT WRIST RESTRAINTS REMOVED AT THIS TIME TO SEE HOW HE WOULD DO. PATIENT SEEMED TO BE COOPERATING THEN SUDDENLY TRIED TO GET UP QUICKLY. PATIENT COAXED BACK TO SUPINE POSITION AND RESTRAINTS REPLACED PATIENT IS IMPULSIVE AND NOT FOLLOWING COMMANDS NOW. PATIENT HAS HAD A POOR APPETITE ALL DAY AND HAS EATEN LESS THAN 10% OF HIS MEALS.
[2017-01-22 18:48] VITALS: BP 110/60
--- NOTE | 2017-01-22 19:30 | NUR ---
REPORT GIVEN TO FABY CORRAL. PATIENT AWAKE. BILATERAL SOFT WRIST RESTRAINTS IN PLACE. REPORT SHEET PROVIDED TO SHAYNA. NO IV ACCESS, DR. WAY AWARE. BED LOW, SITTER AT BEDSIDE. CARE ENDORSED.
--- NOTE | 2017-01-22 20:06 | NUR ---
RECIEVED PT AT BEDSIDE. PT IS LETHARGIC AND AAO X1 (TO SELF). PT IS BEING CLOSELY MONITORED. LUNG SOUNDS ARE CTA ON RA. THE PT HAS INCONTINENT SPELLS AND IS ON SOFT RESTRAINTS DUE TO VIOLENT TEDENCIES. THERE IS NO EDEMA NOTED. PULSES PRESENT. BOWEL SOUNDS ACTIVE. BED IS IN LOWEST POSITION. WILL CONTINUE TO MONITOR.
--- NOTE | 2017-01-22 21:30 | NUR ---
I HAVE REVIEWED THE DATA COLLECTION BY LUCIO (NAME): KALPANA GUADARRAMA ENTERED ON (DATE/TIME): 01/22/172129 I CONCUR WITH THE DATA AND ANY EXCEPTIONS OR COMMENTS ARE LISTED BELOW:
--- NOTE | 2017-01-23 01:50 | NUR ---
PT WAS AGITATED AND TRYING TO GET OUT OF BED. PT ALSO CURSED MULTIPLE TIMES. MEDICATED WITH ATIVAN PER EMAR. WILL CONTINUE TO MONITOR.
--- NOTE | 2017-01-23 02:30 | NUR ---
MEDICATION WAS EFFECTIVE. PT IS NOW SLEEPING COMFORTABLE. PT IS BEING CLOSELY MONITORED.
[2017-01-23 06:25] LABS: BASOPHIL % 0.5 % (0-2); PLATELET COUNT 347 x10^3mcL (130-400); RED CELL DISTRIBUTION WIDTH 13.3 % (11.5-14.5)
[2017-01-23 06:43] LABS: CALCIUM 8.1 mg/dL (8.5-10.1); CARBON DIOXIDE 27.7 mmol/L (21-32); CHLORIDE SERUM 104 mmol/L (98-107); CREATININE SERUM 0.8 mg/dL (0.7-1.3); GFR1 > 60 mL/min; GLUCOSE SERUM 103 mg/dL (74-106); POTASSIUM SERUM 3.1 mmol/L (3.5-5.1); SODIUM SERUM 140 mmol/L (136-145)
[2017-01-23 07:09] VITALS: BP 131/78
--- NOTE | 2017-01-23 08:00 | NUR ---
RECIEVED PT. VERY RESTLESS AND AGITATED, PT. KICKING ALL NURSES AT BEDSIDE ON 1:1 SITTER ,BUSTER SOFT WRIST RESTRAINTS ON TO BUSTER. UPPER EXT.HALDOL GIVEN IM ORDERED.DR. WAY MADE AWARE OF PT. CONDITION.TOTAL CARE RENDERED. REFUSED TO EAT BREAKFAST. INCONT. OF URINE AND BM KEEP CLEAN AND DRY.RECIEVED NO IV ACCESS AT THIS TIME PT. KEEP REMOVING IV ACCESS OUT. AWARE.MADE PT. COMFORTABLE ALL SR. UP. WILL CONT. TO MONITOR PT.
--- NOTE | 2017-01-23 10:00 | NUR ---
ALL 0900 AM MEDS HOLD AT THIS TIME,PT.LETHARGIC DR. RAYNA TOUSSAINT AWARE. HALDOL WAS GIVEN FORAGITATION WAS EFFECTIVE AT THIS TIME.WILL CONT. TO MONITOR.
--- NOTE | 2017-01-23 10:00 | NUR ---
PT. RESTING AND SLEEPING AT THIS TIME.WILL CNT. TO MONITOR PT.
--- NOTE | 2017-01-23 12:10 | NUR ---
PT. WAS AWAKEN AND RESTESS AND AGITATED STARTED KICKING NURSES AT BEDSIDE AND YELLING TRIED TO GET OUT OF BED. PT. NOT FOLLOW COMMAND. 4 NURSES AT BEDSIDE HOLDING PT. VERY STRONG AND PUNCHING NURSES CALLED DR. WAY AND MADE AWARE OF PT. CONDITION DR WAY AT BEDSIDE ,HALDOL AND ATIVAN GIVEN IM ORDERED.PT.SITTING UP IN CHAIR AT THIS TIME.REMOVED TEL. MONITOR AND HOSPITAL GOWN. SPOOKED TO PT. TO GO BACK TO BED AND ASSISTED PT. TO GO BACK TO BED AND MADE COMFORTABLE.3 NRSES AT BEDSIDE.WILL CONT. TO MONITOR.
--- NOTE | 2017-01-23 12:30 | NUR ---
PT. STILL RESTLESS AND AGITATED KICKING NURSES DR. WAY AT BEDSIDE AND STATED OK TO GIVE PO. HALDOL AND PO ATIVAN ORDERED AND GIVEN W/ PUDDING PO. 4 NURSES AT BEDSIDE.WILL CONT. TO MONITOR.
--- NOTE | 2017-01-23 13:20 | NUR ---
ALL AGITATION MEDICATION WAS GIVEN STILL NOT EFFECTIVE AT THIS TIME.DR. WAY ORDERED.GEODONE IM MEDS WAS GIVEN WILL CONT. TO MONITOR PT.
[2017-01-23 13:34] VITALS: BP 149/87
--- NOTE | 2017-01-23 16:00 | NUR ---
PT. SLEEPING AT THIS TIME.WILLCONT. TO MONITOR
[2017-01-23 17:08] VITALS: BP 143/85
--- NOTE | 2017-01-23 18:20 | NUR ---
PT. AWAKENED AND AGITATED RESTLESS ,MEDICATED FOR AGITATION ORDERED,CONT. ON BUSTER. SOFT WRIST RESTRAINTS SEE SHEET RECORDS. PT. CONT KICKINBG AND HITTING NURSES AND SPITTING. ALL SR UP.WILLCONT. TOMONITOR PT.
--- NOTE | 2017-01-23 20:00 | NUR ---
RECEIVED PT IN BED, WITH EYES CLOSED AT THIS TIME. CALM, SITTER AT THE BEDSIDE FOR SAFETY. WITH BILAT. SOFT WRIST RESTRAINTS FOR SAFETY.RESP. EVEN AND UNLABORED. ON ROOM AIR, NO DISTRESS NOTED. NO TELE, PT REFUSED , NO SIGNS OF ANY DISCOMFORT NOTED AT THIS TIME. NO IV ACCESS, MD AWARE. COMBACTIVE, AGITATED AND RESTLESS WHEN AWAKE.REMAINS ON SEIZURE PREC. NO ACTIVITY NOTED AT THIS TIME. WILL CONTINUE TO MONITOR.
[2017-01-23 20:22] VITALS: BP 132/68
--- NOTE | 2017-01-23 23:00 | NUR ---
AWAKE, RESTLESS, INCONT. OF URINE, CLEANED AND LINEN CHANGED. SITTER AT THE THE BEDSIDE FOR SAFETY. DUE MEDS GIVEN . WILL CONTINUE TO MONITOR.
--- NOTE | 2017-01-24 01:51 | NUR ---
EYES CLOSED, CALM AT THIS TIME. SITTER AT THE BEDSIDE FOR SAFETY. WILL CONTINUE TO MONITOR.
[2017-01-24 05:23] VITALS: BP 140/52
[2017-01-24 06:30] LABS: CALCIUM 8.1 mg/dL (8.5-10.1); CARBON DIOXIDE 29.8 mmol/L (21-32); CHLORIDE SERUM 106 mmol/L (98-107); CREATININE SERUM 0.8 mg/dL (0.7-1.3); GFR1 > 60 mL/min; GLUCOSE SERUM 100 mg/dL (74-106); SODIUM SERUM 143 mmol/L (136-145)
--- NOTE | 2017-01-24 06:32 | NUR ---
NO COMPLAINTS NOTED AT THIS TIME. CALM, NO AGITATION NOTED AT THIS TIME. SITTER AT THE BEDSIDE FOR SAFETY. INCONT. OF URINE, CLEANED. LINEN CHANGED. KEPT COMFORTABLE. AFEBRILE AND VITAL SIGNS STABLE.ON SEIZURE PRECAUTION, NO SEIZURE ACTIVITY NOTED. WITH BILAT. SOFT WRIST RESTRAINTS FOR SAFETY, ABLE TO MOVE EXTS. WILL ENDORSE TO INCOMING NURSE.
--- NOTE | 2017-01-24 07:39 | NUR ---
RECEIVED PT LAYING IN BED AWAKE. APPEARS ANXIOUS. STATES THAT HE IS SAD AND MISSES HIS FAMILY. PROVIDED SUPPORT AND COMFORT, ENCOURAGED PT THAT HE WAS IN GOOD HANDS AND THAT WE ARE THERE TO HELP HIM. PT SEEMED TO TAKE TO BOAT OUTFITTER WELL. BREATHING UNLABORED. INFORMATION BOARD UPDATED. WILL CONTINUE TO MONITOR FOR SAFETY
--- NOTE | 2017-01-24 09:52 | NUR ---
PT IN BED, PULLING AT RESTRAINTS, VERBALLY SEXUALLY INAPPROPRIATE WITH STAFF, NEEDING REDIRECTION, ENCOURAGING PT TO RELAX. BREATHING UNLABORED. WILL CONTINUE TO MONITOR
--- NOTE | 2017-01-24 17:09 | NUR ---
PT IS CURRENTLY RESTING IN BED. WAS CHANGED x3 IN THE LAST HOUR D/T INCONTINENCE OF LOOSE STOOL. DR. WAY AWARE. REQUIRED 4 STAFF DUE TO HIM BEING UNCOOPERATIVE, NEEDING CONSTANT REDIRECTION. WILL CONTINUE TO MONITOR
[2017-01-24 18:28] VITALS: BP 132/78
--- NOTE | 2017-01-24 19:30 | NUR ---
PT IS RESTING, WITH SITTER. ALERT AND ORIENTED X 2. CONFUSED. AND WILL BECOME RESTLESS. SEIZURE PRECAUTION. PADDED SIDERAILS. BUSTER WRIST RESTRAINTS FOR HIS SAFETY. CLEAR LUNG SOUNDS ON AUSCULTATIONS BILATERALLY UPPER AND LOWER BASES. UNSTEADY GAIT. NO IV ACCESS. INCONTINENT OF URINE AND STOOL. REDNESS TO BUTTOCKS AND BUSTER WRIST. APPLIED Z-GUARD. WILL MONITOR.
[2017-01-24 21:53] VITALS: BP 130/80
--- NOTE | 2017-01-24 22:14 | NUR ---
PT WAS MEDICATED WITH ATIVAN 2 MG IVPUSH. NOTED VERY RESTLESS AND AND WANTING TO GET UP IN BED AND HITTING NURSES.
--- NOTE | 2017-01-24 22:21 | NUR ---
PT WAS GIVEN HALDOL BECAUSE OF UNCONTROLLABLE BEHAVIOR, VERY CONFUSED AND ALMOST HIT MABLE HOBBS. MEDICATED WITH HALDOL IM. AND TOLERATED WELL. 2 SECURITY PRESENT. PT'S WAS GIVEN MEDICATIONS AND MIXED IT WITH ORANGE JUICE AND HE JUST SLAPPED IT.SPLASHED OVER US. ALL MEDS WAS WASTED. AND PREPARED THE SECOND DOSE OF ALL WASTED MEDICATIONS AND MIXED IT THIS TIME WITH SODA. HE TOOK SOME OF IT. WILL MONITOR.
--- NOTE | 2017-01-24 23:07 | NUR ---
PT RECEIVED BENADRYL 50 MG IVPUSH AND RESTING RIGHT NOW.
[2017-01-25 05:16] VITALS: BP 107/59
--- NOTE | 2017-01-25 05:31 | NUR ---
PT IS RESTING IN BED FOR NOW. CONFUSED. CALMER BUT BEHAVIOR IS UNPREDICTABLE. HE CAN BECOME UNCONTROLLABLE AND RESTLESS AND AGITATED AND HE SOMETIMES COMBATIVE. HAD A DOSE OF HALDOL IM, ATIVAN IM AND BENADRYL IM. REFSUED TO WEAR GOWN. BUSTER WRIST RESTRAINT APPLIED TO BOTH HANDS FOR SAFETY AND HITTING AND COMBATIVENESS. NO IV ACCESS. WILL CONTINUE OT MONITOR. 1:1 SITTER AT BEDSIDE.
--- NOTE | 2017-01-25 06:08 | NUR ---
PT STILL RESTING IN BED. SITTER 1:1. WILL MONITOR.
[2017-01-25 06:19] LABS: CALCIUM 8.2 mg/dL (8.5-10.1); CARBON DIOXIDE 30.1 mmol/L (21-32); CHLORIDE SERUM 103 mmol/L (98-107); GFR1 > 60 mL/min; GLUCOSE SERUM 112 mg/dL (74-106); POTASSIUM SERUM 3.8 mmol/L (3.5-5.1); SODIUM SERUM 139 mmol/L (136-145)
--- NOTE | 2017-01-25 08:20 | NUR ---
PT ON BED, AWAKE, ALERT, AND ORIENTED. PT IS DROWSY. MORNING MEDICATION GIVEN WITH APPLE JUICE. CLEAR BUSTER LUNG FIELD, SYMMETRICAL CHEST EXPANSION AND UNLABORED. ACTIVE BOWEL SOUNDS NOTED. NON DISTENDED ABDOMEN. PT IS UNDER CLOSE OBSERVATION. SIDE RAILS UP, CALL LIGHT WITHIN REACH, WILL CONTINUE TO MONITOR
--- NOTE | 2017-01-25 09:34 | NUR ---
PT ON BED, ASLEEP
--- NOTE | 2017-01-25 10:30 | NUR ---
PT ON BED, ASLEEP
--- NOTE | 2017-01-25 12:15 | NUR ---
MEDICATION GIVEN WITH ORANGE JUICE
--- NOTE | 2017-01-25 13:45 | NUR ---
PRN ATIVAN GIVEN DUE TO PATIENT BEING AGITATED AND ATTEMPTED TO KICK RN AND COLOR SPRAYER. WILL CONTINUE TO MONITOR
--- NOTE | 2017-01-25 14:10 | NUR ---
PRN MEDICATION GIVEN FOR AGITATION AND DISRUPTIVE BEHAVIOR
--- NOTE | 2017-01-25 16:21 | NUR ---
PT ON BED, ASLEEP
--- NOTE | 2017-01-25 17:59 | NUR ---
PT IS SEEN EASILY AGITATED BUT FOLLOW COMMAND AND TOOK HIS DESTIN MEDICATIONS. PT UNDER CLOSE OBSERVATION
--- NOTE | 2017-01-25 20:16 | NUR ---
EYES CLOSED DURING INITIAL ROUNDS, CALM AND QUIET, RESPONSIVE TO TACTILE STIMULUS, NO DISTRESS, RESP EVEN AND UNLABORED, SITTER AT BEDSIDE, CLOSELY MONITORED, BSR'S UP FOR SAFETY, CALL LIGHT AT REACH, SHIFT ASSESSMENT DONE CONT TO MONITOR.
--- NOTE | 2017-01-25 21:35 | NUR ---
PT AWAKE VERBAL WITH EPISODES OF RESTLESSNESS, AGREED TO TAKE ALL MEDS DUE FOR TONIGHT, WANTED TO HAVE BILAT SOFT WRIST RESTRAINT TO BE TAKEN OFF, REALITY ORIENTATION PROVIDED, SITTER AT BEDSIDE IN WHICH PT LISTEN AND FOLLOWS @ TIMES CONT TO MONITOR CLOSELY.
--- NOTE | 2017-01-26 03:30 | NUR ---
AGITATED WHEN AWAKE NO DISTRESS BILAT SOFT WRIST RESTRAINT STILL NEEDED AT THIS TIME, SITTER AT BEDSIDE, CHECKED AT INTERVALS.
[2017-01-26 05:54] VITALS: BP 115/63
--- NOTE | 2017-01-26 07:16 | NUR ---
AWAKE MORE COOPERATIVE AND CALM AT THIS TIME, FOLLOWS SIMPLE COMMANDS, DENIES PAIN NOR DISCOMFORTS, SITTER AT BEDSIDE, ENDORSED TO INCOMING SHIFT FOR F/U CARE.
[2017-01-26 08:29] VITALS: BP 107/74
--- NOTE | 2017-01-26 09:00 | NUR ---
PT ON BED, AWAKE, ALERT, AND ORIENTED. PT IS DROWSY. MORNING MEDICATION GIVEN WITH orange JUICE. CLEAR BUSTER LUNG FIELD, SYMMETRICAL CHEST EXPANSION AND UNLABORED. ACTIVE BOWEL SOUNDS NOTED. NON DISTENDED ABDOMEN. PT IS UNDER CLOSE OBSERVATION. SIDE RAILS UP, CALL LIGHT WITHIN REACH, WILL CONTINUE TO MONITOR
--- NOTE | 2017-01-26 12:00 | NUR ---
PT ON BED, AWAKE, ALERT, AND ORIENTED. HAS NO COMPLAINT OF PAIN, SOB, OR DIZZINESS. RESPONDS WELL TO QUESTION AND ANSWER AT TIMES. WILL CONTINUE TO MONITOR
--- NOTE | 2017-01-26 12:30 | NUR ---
PT'S ACCUCHECK SHOWED 391. PT REFUSED COVERAGE
--- NOTE | 2017-01-26 14:38 | NUR ---
Initial Nutrition Assessment- Dx: Metabolic Encephalopathy 2/2 Hyperammoniemia (Intellectual Disability) PMHx: Violent outburts, HLD, HTN, GERD PSHx: Unknown Labs: BG 112H, amylase 118H, lipase 559H, ammoni: 45H BP:107/74 Meds: Colace, lipitor and zofran Diet: Low fat PO Intake: 60% Ht: 71in Wt: 241 (109.7 Kg) BMI: 33.8 IBW: 166 lbs %IBW: 145% UBW: AdjBW: 84 Kg Age: 36 YO Food Allergies: None Skin: intact Jose:22 Edema: None GI: +BM 01/25 (Incontinent) Problem with: N: No V:No D:No C:No Problems with: Chewing: No Swallowing: No Current appetite: Moderate per RN Recent wt change: None %wt change:None Vitamin/Supplement use: NA Special diet at home: Regular Physical activity: None Education: Low fat diet Estimated Nutritional Needs Based on body weight kg Energy: 5628-1170 kcal/d (2042 x 1.1 x 1.1 -500) wt loss factor Protein: 84-100 g/d (g/kg of AdjBW) Fluid: 4955-5034 ml/d (1 ml/kcal) or per MD Nutrition Diagnosis 1. Obesity Related to excess energy intake as evidenced by BMI of 33 2. Altered nutrition related lab values related to pancreatinc dysfunction as evidenced by elevated lipase and amylase Intervention 1. Continue low fat diet, change to cardiac diet if BP rises Monitor/Evaluate Goal: PO intake at least 75% of estimated needs Monitor: PO intake, Labs, GI function F/U 2-3 in days as
--- NOTE | 2017-01-26 14:44 | NUR ---
Recommendations: 1. Continue low fat diet, change to cardiac diet if BP rises
--- NOTE | 2017-01-26 15:00 | NUR ---
PT ON BED, ASLEEP
[2017-01-26 17:44] VITALS: BP 99/59
--- NOTE | 2017-01-26 17:45 | NUR ---
PT ON BED, ASLEEP. WILL CONTINUE TO MONITOR
--- NOTE | 2017-01-26 19:38 | NUR ---
REC'D PT FROM DAY SHIFT NURSE. PT RESTING IN BED WITH EYES CLOSED. NO SIGNS OF DISTRESS NOTED. LAYING ON L SIDE. BREATHING EVEN/UNLABORED ON RA. AROUSES WITH TACTILE STIMULATION- GRUNTS. DID NOT RESPOND WHEN ASKED QUESTIONS REGARDING ORIENTATION. SZ PREC IN PLACE. CALL LIGHT WITHIN REACH, BED AT LOWEST POSITION, BED ALARM ON, UNDER CLOSE OBSERVATION. WILL CONTINUE TO MONITOR.
--- NOTE | 2017-01-26 20:30 | NUR ---
SPOKE TO MIXING TECHNICIAN OF [facility]INO [facility] REGARDING PT'S CURRENT PLAN TO FIND PLACEMENT IN A PSYCH FACILITY TO HELP STABILIZE PT.
[2017-01-26 20:38] VITALS: BP 108/54
--- NOTE | 2017-01-26 21:31 | NUR ---
DUE MEDS GIVEN. PT WAS CALM AND COOPERATIVE. CURRENTLY RESTING IN BED WITH EYES CLOSED. UNDER CLOSE OBSERVATION.
--- NOTE | 2017-01-26 21:57 | NUR ---
CHOCOLATE PUDDING GIVEN PER REQUEST. PT VOIDED, LINENS CHANGED.
--- NOTE | 2017-01-27 00:24 | NUR ---
AMMONIA HIGH. LACTULOSE AND COLACE GIVEN LATE. PT RESTING IN BED COMFORTABLY. CALM AND COOPERATIVE AT THIS TIME. GARBLED SPEECH. WILL CONTINUE TO MONITOR.
--- NOTE | 2017-01-27 02:34 | NUR ---
PT RESTING IN BED WITH EYES CLOSED. LAYING ON LEFT SIDE. NO SIGNS OF DISTRESS NOTED. BREATHING EVEN/UNLABORED ON RA. CALL LIGHT WITHIN REACH, BED AT LOWEST POSITION, UNDER CLOSE OBSERVATION. WILL CONTINUE TO MONITOR.
[2017-01-27 05:06] VITALS: BP 97/54
--- NOTE | 2017-01-27 05:10 | NUR ---
PT RESTING IN BED WITH EYES CLOSED. NO SIGNS OF DISTRESS NOTED. BREATHING EVEN/UNLABORED ON RA. PT HAS BEEN CALM THROUGHOUT THE WHOLE NIGHT. DID NOT TRY TO GET OUT OF BED. NO VIOLENT OUTBURSTS. COOPERATIVE WITH TAKING MEDICATIONS. SZ PREC IN PLACE. NO BM DURING SHIFT. CALL LIGHT WITHIN REACH, BED AT LOWEST POSITION, BED ALARM ON, UNDER CLOSE OBSERVATION. WILL ENDORSE TO DAY SHIFT NURSE.
[2017-01-27 09:30] VITALS: BP 96/52
--- NOTE | 2017-01-27 10:03 | NUR ---
AAO TIMES TO PERSON. 1:1 SITTER, HISTORY OF PSYCHIATRIC ILLNESS. NO IV SITE ON PT. LUNGS CTA. NO SOB. O2 SAT ON AR 100%. BS'S ACTIVE TIMES 4. USES URINAL WITH HELP. BECAME IRRITATED WITH ME AND YELLING "COME ON" WHEN I TRIED TO GIVE HIM HIS AM MEDS, I WILL RETRY IN 1/2 HOUR, DR LING AWARE. NO C/O PAIN. I NOTIFIED DR LING THAT THE EXTRA DOSE OF POTASSIUM HELD THIS AM BY ME, HE ALREADY HAS A DAILY DOSE ORDERED.
[2017-01-27 12:23] LABS: BASOPHIL % 0.6 % (0-2); PLATELET COUNT 396 x10^3mcL (130-400)
[2017-01-27 12:36] LABS: CALCIUM 9.2 mg/dL (8.5-10.1); CARBON DIOXIDE 30.8 mmol/L (21-32); CHLORIDE SERUM 107 mmol/L (98-107); CREATININE SERUM 0.9 mg/dL (0.7-1.3); GFR1 > 60 mL/min; GLUCOSE SERUM 96 mg/dL (74-106); MAGNESIUM 2.4 mg/dL (1.8-2.4); PHOSPHOROUS 4.6 mg/dL (2.5-4.9); SODIUM SERUM 140 mmol/L (136-145)
[2017-01-27 18:04] VITALS: BP 111/64
--- NOTE | 2017-01-27 18:39 | NUR ---
AAO TO PERSON. 1:1 SITTER. NO TELE, MED SURG. NO C/O PAIN. NO SOB. NO IV. SLEEPING MOST OF THE DAY, BUT AROUSABLE.
--- NOTE | 2017-01-27 19:54 | NUR ---
PATIENT RECEIVED RESTING IN BED WITH EYES CLOSED, AROUSES TO TACTILE STIMULI. RESPIRATION EVEN AND UNLABORED, NO S/S OF ACUTE DISTRESS. MAINTAINED ON SEIZURE PRECAUTION, BED IN LOWEST POSITION, BED ALARM ON, CONTINUE TO NELSON FREQUENT VISULA CHECK FOR SAFETY.
--- NOTE | 2017-01-27 20:50 | NUR ---
ALL DUE MEDICATIONS GIVEN , BUT APPARENLLY NOT AFFECTIVE, STIL, GETTING OUT OF BED WITHOUT ASSSITANCE. FREQUENT VERBAL CUES FOR SAFETY. REMAINS IN A ROOM CLOSED TO NURSES STATION.
--- NOTE | 2017-01-28 00:10 | NUR ---
EYES CLOSED, NO FACIAL GRIMACING NOTED. RESPIRATION EVEN AND UNLABORED. NO S/S OF ACUTE DISTRESS.
--- NOTE | 2017-01-28 02:00 | NUR ---
INCONTINENT OF BLADDER FUNCTION. GOOD PERICARE RENDERED. KEPT CLEAN AND DRY. TOLERATED FLUIDS ORALLY. NO S/S OF ASPIRATION NOTED.
--- NOTE | 2017-01-28 05:39 | NUR ---
STILL WITH FREQUENT EPISODES OGF ANXIUOSNESS/RESTLESSNESS. APPARENTLY MEDICATIONS ARE NOT EFFECTIVE. KEEPS ON ASKING ORANGE JUICE, PATIENT HAS HIGH POTASSIUM, EXPLAINED TO PT THAT ORANGE JUICE HAS GABRIELE POTASSIUM CONTENT BUT APPARENTLY HAS POOR COGNITION/ UNABLE TO UNDERSTAND .
--- NOTE | 2017-01-28 06:27 | NUR ---
PATIENT REFUSED VITAL SIGNS, VERY UNCOOPERATIVE WITH PLAN OF CARE. NO EPISODES OF SEIZURE ACTIVITY THE WHOLE SHIFT. ALL NEEDS ATTENDED.
--- NOTE | 2017-01-28 07:29 | NUR ---
PT WAS ENDORSE TO ME, PT SITTING UP IN CHAIR, CALM. ALERT, BY THE NURSE REJI FOR OBSERVATION. WILL CONTINUE PLAN OF CARE.
--- NOTE | 2017-01-28 08:07 | NUR ---
DR. DEL RIO AND TEAM MADE ROUNDS, WILL CONTINUE PLAN OF CARE.
[2017-01-28 09:47] VITALS: BP 105/55
--- NOTE | 2017-01-28 10:46 | NUR ---
GAVE PT AM MEDS , TOLERATED THEM WELL. PT IS RESTING IN BED, CALL LIGHT IN REACH , BED AT LOW POSITION , PT IS AMBULLATING HALLWAY AND BACK TO BED SAFELY. WILL CONTINUE PLAN OF CARE.
--- NOTE | 2017-01-28 15:54 | NUR ---
PT IS ANXIOUS MOVING FROM THE BED TO CHAIR AND NOW BACK TO BED SAFELY. CALL LIGHT IN REACH , BED IN LOW POSITION, SAFETY PRECAUTIONS IN PLACE, WILL CONTINUE PLAN OF CARE.
[2017-01-28 16:00] VITALS: BP 119/69
--- NOTE | 2017-01-28 17:00 | NUR ---
HALDOL IM GIVEN BY CHARGE NURSE YEMI WITH GOOD RELIEF. PT RESTING AT THIS TIME.
--- NOTE | 2017-01-28 18:22 | NUR ---
PT SITTING UP IN BED HAVING DINNER , PM MEDS GIVEN, TOLERATED THEM WELL. CALL LIGHT IN REACH, BED AT LOW POSITION, WILL CONTINUE PLAN OF CARE.
[2017-01-28 18:24] VITALS: BP 106/62
--- NOTE | 2017-01-28 18:28 | NUR ---
NURSING CO-SIGN THE DOCUMENTATION ENTERED BY THE RN ALISHA HAS BEEN REVIEWED. REVIEWED/CO-SIGNED BY: Sheron Garnica DOCUMENTATION DONE BY ALIS OROSCO
--- NOTE | 2017-01-28 18:47 | NUR ---
PT DENIES ANY DISCOMFORT OR PAIN AT THIS TIME, WILL ENDORSE PT TO INCOMING NURSE. CALL LIGHT IN REACH, BED IN LOW POSITION.
--- NOTE | 2017-01-28 20:10 | NUR ---
PT'S IN BED CALM SITTER AT THE BEDSIDE AT THE MOMENT , LUNG SOUNDS CTA, ABD SOFT BS ACTIVE X4. NO ACUTE DISTRESS NOTED , WILL CON'T TO MONITOR PT .
--- NOTE | 2017-01-29 00:49 | NUR ---
PT'S IN BED AWAKE , VERY CALM, NO ACUTE DISTRESS NOTED, ALL DUE MEDS GIVEN PT TOLERATED WELL , SITTER AT THE BED SIDE FOR SAFETY.
--- NOTE | 2017-01-29 01:57 | NUR ---
I HAVE REVIEWED THE DATA COLLECTION BY LUCIO (NAME): eliza ramon ENTERED ON (DATE/TIME):01/28/17 I CONCUR WITH THE DATA AND ANY EXCEPTIONS OR COMMENTS ARE LISTED BELOW:
--- NOTE | 2017-01-29 01:57 | NUR ---
late entry: 1999h - PATIENT'S PLAN OF CARE WAS DISCUSSED AND REVIEWED WITH FRIT MAKER: eliza ramon
--- NOTE | 2017-01-29 04:52 | NUR ---
PT'S IN BED WITH EYES CLOSED , SITTER AT THE BEDSIDE FOR SAFETY .
[2017-01-29 06:00] VITALS: BP 111/69
--- NOTE | 2017-01-29 06:18 | NUR ---
NO CHANGES OF CONDITION NOTED, PT IS IN BED AWAKE NO ACUTE DISTRESS NOTED,ALL DUE MEDS GIVEN NO REACTION NOTED, SITTER AT THE BEDSIDE .
--- NOTE | 2017-01-29 07:24 | NUR ---
PT WAS ENDORSE TO ME THIS MORNING, PT IS SLEEPING AT THIS TIME ,PT HAS NO SIGN OF DISTRESS OR DISCOMFORT AT THIS TIME. PT IS BY NURSING STATION,BED IN LOW POSITION AND CALL LIGHT IN REACH. WILL CONTINUE PLAN OF CARE.
--- NOTE | 2017-01-29 08:19 | NUR ---
DR. DEL RIO AND TEAM MADE ROUNDS THIS MORNING. WILL CONINUE PLAN OF CARE AND POSSIBLE TRANSFER. WILL CONTINUE PLAN OF CARE, CALL LIGHT IN REACH, BED AT LOW POSITION FOR SAFETY .
[2017-01-29 09:02] VITALS: BP 108/65
--- NOTE | 2017-01-29 10:06 | NUR ---
GAVE PT ALL MORNING MEDS, TOLERATED THEM ALL WELL. PT IS RESTING IN BED VERY CALM. CALL LIGHT IN REACH, BED AT LOW POSITION. WILL CONTINUE PLAN OF CARE.
--- NOTE | 2017-01-29 11:30 | NUR ---
PT IS SITTING UP IN BED, WALKED OVER TO THE BATHROOM WITH ASSISTANCE. VOIDED AND RETURNED TO BED SAFELY. CALL LIGHT IN REACH/ BED AT LOW POSITION FOR SAFETY. WILL CONTINUE PLAN OF CARE.
[2017-01-29 14:20] VITALS: BP 128/55
--- NOTE | 2017-01-29 17:29 | NUR ---
ADMINISTERED PT PM MEDS, TOLERATED MEDS WELL. IS SITTING UP IN BED HAVING DINNER. CALL LIGHT IN REACH.
[2017-01-29 17:38] VITALS: BP 123/72
--- NOTE | 2017-01-29 18:35 | NUR ---
PT IS SLEEPING VERY COMFORTABLE, NO ACUTE RESP DISTRESS NOTED . CALL LIGHT IN REACH, BED IN LOW POSITION, WILL ENDORSE PT TO INCOMING NURSE.
--- NOTE | 2017-01-29 19:50 | NUR ---
RECEIVED PT IN BED AAOX2, PT'S CALM AND COOPERATING WITH CARE AT THE MOMENT , SITTER AT THE BEDSIDE FOR SAFETY .LUNG SOUNDS CTA, ABD SOFT BS ACTIVE X4.
--- NOTE | 2017-01-30 01:43 | NUR ---
PT'S IN BED WITH EYES CLOSED , SITTER AT THE BEDSIDE FOR SAFETY.
--- NOTE | 2017-01-30 06:21 | NUR ---
NO CHANGES OF CONDITION NOTED, ALL DUE MEDS GIVEN NO REACTION NOTED.T'S IN BED AWAKE/CALM /COOPERATING WITH CARE, SITTER AT THE BEDSIDE FOR SAFETY .
[2017-01-30 06:27] VITALS: BP 97/59
--- NOTE | 2017-01-30 08:00 | NUR ---
RECEIVED PT IN BED A/A/OX2-3. FORGETFULA ND DISORIENTED AT TIMES WITH SZ PRECAUTIONS MAINTAINED. HX SZ, DEVELOPMENTALLY DELAY AND PSYCHOSIS. RESP EVEN AND UNLABORED WITH CLEAR BS BILAT. DENIES ANY SOB/CP/PRESSURE, NO EDEMA NOTED. NO IV ACCESS. ABD SOFT, OBESE NONTENDER WITH ACTIVE BS X4. DENIES ANY N/V. CONTINENT OF B+B AT THIS TIME. AMBULATORY WITH SUPERVISION. CALL LIGHT IN REACH. NEEDS ATTENDED TO.
[2017-01-30 08:47] VITALS: BP 102/74
--- NOTE | 2017-01-30 11:30 | NUR ---
NO DISCOMFORT NOTED. RESTING WITH EYES CLOSED AT THIS TIME. NO APPARENT DISTRESS.
[2017-01-30 13:21] LABS: CALCIUM 8.6 mg/dL (8.5-10.1); CARBON DIOXIDE 30.7 mmol/L (21-32); CHLORIDE SERUM 104 mmol/L (98-107); CREATININE SERUM 0.9 mg/dL (0.7-1.3); GFR1 > 60 mL/min; GLUCOSE SERUM 93 mg/dL (74-106); POTASSIUM SERUM 4.3 mmol/L (3.5-5.1); SODIUM SERUM 142 mmol/L (136-145)
--- NOTE | 2017-01-30 14:02 | NUR ---
1. Continue Low Fat diet per doctor. 2. Consider re-draw Lipase levels. 3. If Lipase lab value is normal, consider Regular diet if/when medically appropriate.
--- NOTE | 2017-01-30 14:02 | NUR ---
Follow Up Nutrition Assessment Dx: Acute Agitated Development Delayed PMHx: Intellectual disability, violent outbursts, mood disorder, psychosis, epilepsy, hypercholesterolemia, HTN, glaucoma, anxiety, GERD Labs: (01/27) K 6 H, BUN 6 L Meds: Cephulac, colace, lithium carbonate, zofran Current Diet Order: Low Fat PO Intakes: (01/28) B: 95%, L: 5%, D: 60%; (01/29) B: 78%, L: 90%, D: 50% Weights: (01/28) 241 lb, 110 kg Skin: Intact. Jose 19. Edema: None GI: Abd soft, non-tender. Active bowel sounds. Last BM 01/28. Current Appetite: Good Problem with: N: None. V: None. D: None. C: None. Per doctor's progress note 01/29, pt did well overnight, been off restraints since Saturday morning, Haldol and Ativan D/C, no aggression noted by staff or overnight RN, eating breakfast; Pt with hepatic encephalopathy secondary to hyperammoniemia. Per Bed Huddle reports, still pending placement for pt. Pt is forgetful and disoriented at times per nursing notes. Pt seen covered fully in blankets, lunch tray at bedside, untouched, sitter/MICROBIOLOGY MANAGER at bedside. MICROBIOLOGY MANAGER reported that pt ate about 80% of breakfast, tolerated well, no chewing/swallowing issues, sleepy at this time. Spoke with Dr. Lewis at nursing station regarding recommendations, doctor agreeable. Estimated Nutritional Needs Based IBW 172 lb, 78 kg Energy: 2921-7076 kcal/day (25-30 kcal/kg for Maintenance) Protein: 78 gm/day (1 gm/kg for Maintenance) Fluids: 2340 ml/day (30 ml/kg for Maintenance) or per doctor Nutrition Diagnosis 1. Obesity related to excessive energy intakes as evidenced by BMI 33 kg/m2 -- *Ongoing 2. Altered nutrition related lab values related to pancreatic dysfunction as evidenced by elevated lipase and amylase - Likely resolved Intervention 1. Continue Low Fat diet per doctor. 2. Consider re-draw Lipase levels. 3. If Lipase lab value is normal, consider Regular diet if/when medically appropriate. Monitor/Evaluate Goal: PO intakes to meet >75% of estimated needs with tolerance Monitor: PO intakes, tolerance to diet, labs, skin integrity, GI function, weights F/U in 7 days as LOW risk (02/06)
--- NOTE | 2017-01-30 17:20 | NUR ---
PT AMBUALTING DOWN THE HALLWAY WITH SUPERVISION. DENIES ANY DISCOMFORT.
--- NOTE | 2017-01-30 18:28 | NUR ---
PT RESTING AT THIS TIME WITH EYES CLOSED NO APPARENT DISTRESS.
--- NOTE | 2017-01-30 19:41 | NUR ---
SHIFT REASSESSMENT DONE.PATIENT ASLEEP,DID NOT DISTURBED FOR NURSING ROUNDS/RESTING.WATCH CLOSELY FOR SAFETY.SZ PRECAUTION MAINTAINED.GEN WEAKNESS.NO IV ACCESS.MED SURG PATIENT ALSO.SKIN INTACT.SCD ORDERED,OFF AT THIS TIME.SKIN INTACT.CALL LIGHT IN REACH.
--- NOTE | 2017-01-30 20:30 | NUR ---
VERIFIED WITH CHARGE NURSES MEREDITH AND ROMEL,IF THIS PATIENT IS AN OFFICIAL SITTER,TO CHART SITTER 1:1.
[2017-01-30 20:40] VITALS: BP 119/72
--- NOTE | 2017-01-30 21:03 | NUR ---
ALL MEDS GIVEN,SWALLOWS WELL.LIKES CHOCOLATE AND GIVEN.ASSISTED BATHROOM,VOIDING WELL.FALL PRECAUTION,SITTER AT BEDSIDE FOR ASSISTANCE.AND NEEDS.
--- NOTE | 2017-01-31 02:57 | NUR ---
CHECKED AT INTERVALS,SLEEPING COMFORTABLY,SITTER,1:1 FOR SAFETY.
--- NOTE | 2017-01-31 05:17 | NUR ---
I AND O MEASURED.PATIENT REMAINS A SITTER 1:1 FOR SAFETY.
[2017-01-31 05:46] VITALS: BP 122/45
--- NOTE | 2017-01-31 08:11 | NUR ---
AT 0710 - RECEIVED PATIENT FROM NIGHT NURSE. PATIENT AWAKE, ALERT, APPEARS ORIENTED. DRESSED AND WALKING IN ROOM. SITTER WITH PATIENT. AT 0735 - PATIENT WALKING IN HALLWAY. STEADY GAIT. AT 0800 - BACK IN ROOM, EATING BREAKFAST.
--- NOTE | 2017-01-31 08:46 | NUR ---
AT 0825 - SEEN BY DR WASHINGTON DURING MORNIGN ROUNDS. MEDICAL TEAM DOCTORS, SABRINA HARPER AND MYSELF PRIMARY NRUSE ALSO PRESENT. DR WASHINGTON SPOKE WITH PATIENT ABOUT PLAN TO DC HOME TO [facility]. PATIENT VERBALIZED AGREEMENT.
[2017-01-31 08:59] VITALS: BP 125/61
[2017-01-31] MEDS ORDERED: DIL100 PO (10:43)
[2017-01-31] MEDS ORDERED: VAL250 PO (10:44)
[2017-01-31] MEDS ORDERED: HAL5 PO ×2 (10:45)
[2017-01-31 12:33] VITALS: BP 125/61
--- NOTE | 2017-01-31 13:33 | NUR ---
FOR DISCHARGE HOME TO [facility]. PATIENT'S PICK HAS BEEN SCHEDULED FOR 1430. PATIENT ALSO AWARE AND APEPARS HAPPY ABOUT GOING HOME. HAS TAKEN ALL SCHEDULED MEDS TODAY. EATING WELL. AMBULATING IN HALLWAY WITH SUPERVISION.
--- NOTE | 2017-01-31 14:53 | NUR ---
AT 1440 - PRINTED DISCHARGE INSTRUCTIONS GIVEN AND EXPLAINED TO PATIENT'S CAREGIVER. ELECTRONIC PRESCRIPTION HAS ALREADY BEEN RECEIVED BY PATIENT'S PREFFERED PHARMACY. PATIENT'S OWN MEDS PATIENT'S OWN MEDS RETURNED TO HIM. DISCHARGED HOME WITH CAREGIVERS. TAKEN TO DISCHARGE OFFICE IN WHEELCHAIR BY [facility].
== END 2017-01-31 14:50 | DRG 279 ==
LOC: ED 13:15 → DU 15:56 → MU 01-25 09:03
PROVIDERS: Emergency Medicine; Family Medicine; ADMIT Family Medicine
DX: K72.90 Hepatic failure, unspecified without coma (principal); N17.0 Acute kidney failure with tubular necrosis; F25.9 Schizoaffective disorder, unspecified; R62.50 Unspecified lack of expected normal physiological development in childhood; R45.6 Violent behavior; F63.81 Intermittent explosive disorder; E87.6 Hypokalemia; G40.909 Epilepsy, unspecified, not intractable, without status epilepticus; I10 Essential (primary) hypertension; H40.9 Unspecified glaucoma; F41.9 Anxiety disorder, unspecified; T43.595A Adverse effect of other antipsychotics and neuroleptics, initial encounter; Y92.018 Other place in single-family (private) house as the place of occurrence of the external cause; E66.9 Obesity, unspecified; Z68.33 Body mass index [BMI] 33.0-33.9, adult
CPT/HCPCS: 80307; 83880; 84439; 87046; 87046-59; G0480; J1165; J1200; J1630; J1885; J1956; J2060; J3486; J3490; J7030

== ENCOUNTER 2017-02-19 08:35 | Inpatient (IN) | payer OTHER ==
[~2017-02-19] VITALS: Ht 180.3 cm; Wt 109.8 kg
[~2017-02-19 08:35] MED LIST: ABILIFY20 M1 PO; BENZTROPINE MESY1 MG PO; DIL100 PO; DILANTIN100 MG PO; DORZOLAMIDE HYD10 M3 OP; FLUOXETINE HYDR10 M1 PO; HAL5 PO; HALOPERIDOL5 MG PO; LEVETIRACETAM PO; LITHIUM CARBON300 M1 PO; SEROQUEL XR200 M1 PO; SEROQUEL200 MG PO; TEMAZEPAM30 MG PO; TRAZODONE150 M1 PO; VAL250 PO; VALPROIC A250 MG/5 M PO; ZESTRIL5 MG PO; ZOCOR10 MG PO; ZONEGRAN100 MG PO
[2017-02-19 09:14] LABS: BASOPHIL % 0.7 % (0-2); PLATELET COUNT 336 x10^3mcL (130-400)
[2017-02-19 09:23] LABS: RED CELL DISTRIBUTION WIDTH 14.9 % (11.5-14.5)
[2017-02-19 09:32] LABS: CALCIUM 8.3 mg/dL (8.5-10.1); CARBON DIOXIDE 26.6 mmol/L (21-32); CHLORIDE SERUM 108 mmol/L (98-107); CREATININE SERUM 0.8 mg/dL (0.7-1.3); GFR1 > 60 mL/min; GLUCOSE SERUM 101 mg/dL (74-106); SODIUM SERUM 144 mmol/L (136-145)
[2017-02-19 09:37] LABS: ALKALINE PHOSPHATASE 54 U/L (46-116); ALT/SGPT 36 U/L (16-63); AST/SGOT 11 U/L (15-37); TOTAL PROTEIN, SERUM 6.6 g/dL (6.4-8.2)
[2017-02-19 09:45] LABS: ALBUMIN 3.3 g/dL (3.4-5.0)
[2017-02-19 11:33] LABS: AMPHETAMINE QUAL UR NONE DETECTED (NEG <=1000)
[2017-02-20] MEDS ORDERED: CLONAZEPAM1 MG PO (08:01)
[2017-02-20] MEDS ORDERED: PROPRANOLOL HCL20 MG PO (08:03)
[2017-02-20] MEDS ORDERED: DEPAKOTE500 MG PO (08:04)
[2017-02-20 20:11] LABS: BASOPHIL % 0.8 % (0-2); PLATELET COUNT 346 x10^3mcL (130-400)
[2017-02-20 20:22] LABS: T3 TOTAL 1.11 ng/mL
[2017-02-20 20:23] LABS: ALBUMIN 3.6 g/dL (3.4-5.0); ALKALINE PHOSPHATASE 74 U/L (46-116); ALT/SGPT 37 U/L (16-63); AMYLASE 84 U/L (25-115); AST/SGOT 22 U/L (15-37); BILIRUBIN TOTAL 0.1 mg/dL (0.20-1.00); CALCIUM 8.6 mg/dL (8.5-10.1); CARBON DIOXIDE 30.6 mmol/L (21-32); CHLORIDE SERUM 104 mmol/L (98-107); CREATININE SERUM 0.8 mg/dL (0.7-1.3); GFR1 > 60 mL/min; GLUCOSE SERUM 96 mg/dL (74-106); HDL CHOLESTEROL 55 mg/dL (40-60); LIPASE 337 IU/L (73-393); MAGNESIUM 1.9 mg/dL (1.8-2.4); PHOSPHOROUS 3.9 mg/dL (2.5-4.9); POTASSIUM SERUM 4.1 mmol/L (3.5-5.1); SODIUM SERUM 140 mmol/L (136-145); TOTAL PROTEIN, SERUM 7.1 g/dL (6.4-8.2)
[2017-02-20 20:26] LABS: CHOLESTEROL 214 mg/dL (<200); CHOLESTEROL/HDL RATIO 3.9; TRIGLYCERIDES 236 mg/dL (<150)
[2017-02-20 20:26] LABS: FREE T4 0.74 ng/dL (0.76-1.46); FREE THYROXINE INDEX 1.7 ug/dL (1.4-4.5); T4(THYROXINE) 4.9 ug/dL (4.7-13.3)
[2017-02-20 21:30] VITALS: BP 129/81
[2017-02-21 06:40] VITALS: BP 111/70
[2017-02-21 07:45] LABS: POTASSIUM SERUM 4.1 mmol/L (3.5-5.1); SODIUM SERUM 140 mmol/L (136-145)
[2017-02-21 07:46] LABS: CALCIUM 8.8 mg/dL (8.5-10.1); CARBON DIOXIDE 27.1 mmol/L (21-32); CHLORIDE SERUM 105 mmol/L (98-107); CREATININE SERUM 0.8 mg/dL (0.7-1.3); GFR1 > 60 mL/min; GLUCOSE SERUM 93 mg/dL (74-106)
[2017-02-21 13:55] LABS: microscopic required? NO
[2017-02-21 14:15] LABS: urine erythrocyte NEGATIVE (NEGATIVE)
[2017-02-21 14:20] VITALS: BP 96/58
[2017-02-21 19:00] VITALS: BP 140/71
[2017-02-21 21:38] VITALS: BP 101/59
[2017-02-22 02:44] LABS: AMPHETAMINE QUAL UR NONE DETECTED (NEG <=1000)
[2017-02-22 05:41] VITALS: BP 96/58
[2017-02-22 09:32] VITALS: BP 108/82
[2017-02-22 13:42] VITALS: BP 126/73
[2017-02-22 18:05] VITALS: BP 116/76
[2017-02-22 21:57] VITALS: BP 135/79
[2017-02-23 06:58] VITALS: BP 128/83
[2017-02-23 09:41] VITALS: BP 116/62
[2017-02-23 14:02] VITALS: BP 102/64
[2017-02-23 17:46] VITALS: BP 112/58
[2017-02-23 21:05] VITALS: BP 102/72
[2017-02-24 05:36] VITALS: BP 112/61
[2017-02-24 09:19] VITALS: BP 99/74
[2017-02-24 14:00] VITALS: BP 91/70
[2017-02-24 17:35] VITALS: BP 99/62
[2017-02-24 21:42] VITALS: BP 115/74
[2017-02-25 06:30] VITALS: BP 111/79
[2017-02-25 08:45] VITALS: BP 111/90
[2017-02-25 18:01] VITALS: BP 109/91
[2017-02-25 22:05] VITALS: BP 139/89
[2017-02-26 06:25] VITALS: BP 132/88
[2017-02-26 06:39] LABS: BASOPHIL % 0.8 % (0-2); PLATELET COUNT 295 x10^3mcL (130-400)
[2017-02-26 06:56] LABS: CALCIUM 8.7 mg/dL (8.5-10.1); CARBON DIOXIDE 29.5 mmol/L (21-32); CHLORIDE SERUM 102 mmol/L (98-107); CREATININE SERUM 0.9 mg/dL (0.7-1.3); GFR1 > 60 mL/min; GLUCOSE SERUM 84 mg/dL (74-106); MAGNESIUM 1.9 mg/dL (1.8-2.4); PHOSPHOROUS 4.9 mg/dL (2.5-4.9); POTASSIUM SERUM 3.7 mmol/L (3.5-5.1); SODIUM SERUM 139 mmol/L (136-145)
[2017-02-26 08:52] VITALS: Ht 180.3 cm; Wt 109.8 kg
[2017-02-26 09:00] VITALS: BP 133/88
[2017-02-26 14:00] VITALS: BP 99/59
[2017-02-26 18:39] VITALS: BP 99/54
[2017-02-26 21:51] VITALS: BP 113/55
[2017-02-27 05:59] VITALS: BP 98/61
[2017-02-27 09:15] VITALS: BP 101/62
[2017-02-27 17:11] VITALS: BP 83/58
[2017-02-27 21:37] VITALS: BP 103/62
[2017-02-28 05:34] VITALS: BP 112/84
[2017-02-28 09:56] VITALS: BP 117/87
[2017-02-28 10:00] VITALS: BP 117/87
[2017-02-28] MEDS ORDERED: DIL100 PO ×2 (13:27→13:40)
[2017-02-28] MEDS ORDERED: DEPAKOTE500 MG PO (13:27)
[2017-02-28] MEDS ORDERED: BENZTROPINE MESY1 MG PO (13:27)
[2017-02-28] MEDS ORDERED: CLONAZEPAM1 MG PO ×2 (13:27→13:40)
[2017-02-28 13:42] VITALS: BP 117/87
== END 2017-02-28 15:19 | disposition home or self-care (01) | DRG 750 ==
LOC: ED 08:35 → DU 21:15 → MU 02-25 10:57
PROVIDERS: Family Medicine; Specialist; ADMIT Family Medicine
DX: F25.0 Schizoaffective disorder, bipolar type (principal); N17.0 Acute kidney failure with tubular necrosis; E44.1 Mild protein-calorie malnutrition; I10 Essential (primary) hypertension; G40.909 Epilepsy, unspecified, not intractable, without status epilepticus; H40.9 Unspecified glaucoma; E78.00 Pure hypercholesterolemia, unspecified; F41.9 Anxiety disorder, unspecified; K21.9 Gastro-esophageal reflux disease without esophagitis; E78.2 Mixed hyperlipidemia; E02 Subclinical iodine-deficiency hypothyroidism; F63.9 Impulse disorder, unspecified; F39 Unspecified mood [affective] disorder; F79 Unspecified intellectual disabilities; Z88.0 Allergy status to penicillin; Z68.33 Body mass index [BMI] 33.0-33.9, adult
CPT/HCPCS: 83880; 84439; G0480; J0515; J1200; J7030